=== PATIENT | female | born 1975 | race Two or more races ===

== ENCOUNTER 2018-05-21 22:35 | Emergency (ER) | payer SELFPAY ==
[2018-05-21] MEDS ORDERED: Nitroglycerin 0.4 MG Tab.SL SL ONE (22:40)
[2018-05-21] MEDS ORDERED: Sodium Chloride 0.9% 2.5 ML Syringe FLUSH PRN ×2 (22:40)
[2018-05-21] MEDS ORDERED: Famotidine 20 MG/2 ML SDV IVPUSH ONE (22:40)
[2018-05-21] MEDS ORDERED: Aspirin 81 MG Tab.Chew PO ONE (22:40)
[2018-05-21] MEDS ORDERED: Sodium Chloride 0.9% 1,000 ML IV ONE (22:40)
[2018-05-21] MEDS ORDERED: Sodium Chloride 0.9% 10 ML Syringe FLUSH PRN (22:40)
--- NOTE | 2018-05-21 22:42 | EDM.PDOC ---
ED HPI GENERAL MEDICAL PROBLEM - General Chief Complaint: Chest Pain Stated Complaint: CHEST PAIN, SOB Time Seen by Provider: 05/21/18 22:42 Source of Information: Reports: Patient History Limitations: Reports: No Limitations - History of Present Illness INITIAL COMMENTS - FREE TEXT/NARRATIVE: HISTORY AND PHYSICAL: History of present illness: 43-year-old female presenting in the [facility] department with chief complaint of chest pain 2 hours. Patient states that she was feeling her normal self until approximately 2-3 hours ago when she began to have substernal chest pain. She denies any associated radiation but did have some nausea with one episode of vomiting as well as shortness of breath and diaphoresis. Denies any previous cardiac history. Also complaining of some right-sided head pain that also has started this evening. States that she does get headaches but this is more new to her. Also complaining of some right sided neck pain and swelling. Currently pain is 8 out 10 and substernal. She does have a history of heartburn. She currently denies any palpitations, syncopal episodes, or focal neurologic deficits. There is swelling to the right neck and patient is acutely tender to palpation. No nuchal rigidity. 0.4 Nitro given as well as aspirin with improvement of chest pain to 6/10 Initial EKG rate [address] elevation ant leads. 2249: WBC elevated 15k Blood cultures already ordered, CT head and neck pending. CXR unremarkable 2315: D-dimer mildly elevated at 0.6 Wells Criteria low risk 0004: CMP unremarkable Troponin negative CT findings: Showed soft tissue edema and stranding in the right posterior lateral neck. A 1.3 cm peripherally enhancing low-attenuation structure medial to the superior right sternocleidomastoid consistent with a abscess or necrotic lymph node. Additionally mildly prominent and shoddy subcentimeter right cervical lymph nodes. Retropharyngeal edema/phlegmon. Apparent soft tissue thickening in the posterior aspect of the hypopharynx in addition an enlarged thyroid extending into the upper neck. Talked with Dr. Green, [facility], who agreed that patient should be transferred for additional assessment by him. He also recommended the addition of decadron, IVF bolus, and Clindamycin which was given. Talked with Dr. Echols, [facility], who accepted patient for transfer. I did discuss the initial presentation of chest pain with Dr. Echols as well as other labs. Review of systems: As per history of present illness and below otherwise all systems reviewed and negative. Past medical history: As per history of present illness and as reviewed below otherwise noncontributory. Surgical history: As per history of present illness and as reviewed below otherwise noncontributory. Social history: No reported history of drug or alcohol abuse. Family history: As per history of present illness and as reviewed below otherwise noncontributory. Physical exam: HEENT: Atraumatic, normocephalic, pupils reactive, negative for conjunctival pallor or scleral icterus, mucous membranes moist, throat clear, neck supple, tenderness to palpation right submadibular and ant cervical area, trachea midline. Lungs: Clear to auscultation, breath sounds equal bilaterally, chest nontender. Heart: S1S2, regular, negative for clicks, rubs, or JVD. Abdomen: Soft, nondistended, nontender. Negative for masses or hepatosplenomegaly. Negative for costovertebral tenderness. Pelvis: Stable nontender. Genitourinary: Deferred. Rectal: Deferred. Extremities: Atraumatic, negative for cords or calf pain. Neurovascular unremarkable. Neuro: Awake, alert, oriented. Cranial nerves II through XII unremarkable. Cerebellum unremarkable. Motor and sensory unremarkable throughout. Exam nonfocal. Diagnostics: CBC, CMP, blood culture 2, chest x-ray, CT head and neck soft tissue Therapeutics: 1 L normal saline, nitroglycerin, ASA, 2 g Rocephin IV, Famotidine 20 mg IV Impression: Atypical chest pain Plan: See above H&P Definitive disposition and diagnosis as appropriate pending reevaluation and review of above. Chest Pain Score (Numeric/FACES): 5 - Related Data Allergies Allergy/AdvReac Type Severity Reaction Status Date / Time No Known Allergies Allergy Verified 05/21/18 22:39 Home Meds: Home Meds . [No Known Home Meds] 05/21/18 [History] Past Medical History - Past Health History Medical/Surgical History: Denies Medical/Surgical History Social & Family History - Tobacco Use Smoking Status *Q: Never Smoker ED ROS GENERAL - Review of Systems Review Of Systems: ROS reveals no pertinent complaints other than HPI. ED EXAM, GENERAL - Physical Exam Exam: See Below Course - Vital Signs Last Recorded V/S: Last Vital Signs Temp 98 F 05/21/18 22:42 Pulse 87 05/21/18 23:46 Resp 19 05/21/18 23:46 BP 146/75 H 05/21/18 23:46 Pulse Ox 97 05/21/18 23:46 - Orders/Labs/Meds Orders: Active Orders 24 hr Category Date Time Status Cardiac Monitoring [RC] . DIRECTED Care 05/21/18 22:40 Active EKG Documentation Completion [RC] STAT Care 05/21/18 22:40 Active Oxygen Therapy [RC] ASDIRECTED Care 05/21/18 22:40 Active Pulse Oximetry [RC] ASDIRECTED Care 05/21/18 22:40 Active Chest 1V Frontal [CR] Stat Exams 05/21/18 22:40 Taken Head w wo Cont [CT] Stat Exams 05/21/18 23:19 Taken Soft Tissue Neck w Cont [CT] Stat Exams 05/21/18 23:35 Taken CULTURE BLOOD [BC] Stat Lab 05/21/18 23:52 Received CULTURE BLOOD [BC] Stat Lab 05/21/18 23:57 Received CULTURE STREP A CONFIRMATION [RM] Stat Lab 05/21/18 23:05 Results HCG QUALITATIVE,URINE [URCHEM] Stat Lab 05/21/18 22:41 Ordered STREP SCRN A RAPID W CULT CONF [RM] Stat Lab 05/21/18 23:05 Results UA W/MICROSCOPIC [URIN] Stat Lab 05/21/18 22:41 Ordered Clindamycin Phosphate [Cleocin] 300 mg Med 05/22/18 01:58 Active Sodium Chloride 0.9% [Normal Saline] 50 ml IV ONETIME Clindamycin Phosphate in D5W [Cleocin in D5W] 900 mg Med 05/22/18 02:09 Active Premix Bag 1 bag IV ONETIME Sodium Chloride 0.9% [Saline Flush] Med 05/21/18 22:40 Active 10 ml FLUSH ASDIRECTED PRN Sodium Chloride 0.9% [Saline Flush] Med 05/21/18 22:40 Active 2.5 ml FLUSH ASDIRECTED PRN Sodium Chloride 0.9% [Saline Flush] Med 05/21/18 22:40 Active 2.5 ml FLUSH ASDIRECTED PRN Blood Culture x2 Reflex Set [OM.PC] Stat Oth 05/21/18 23:33 Ordered Saline Lock Insert [OM.PC] Stat Oth 05/21/18 22:40 Ordered Medication Orders Clindamycin Phosphate 300 mg/ (Sodium Chloride) 52 mls @ 100 mls/hr IV ONETIME ONE Stop: 05/22/18 02:29 Clindamycin Phosphate 900 mg/ (Premix) 50 mls @ 100 mls/hr IV ONETIME ONE Stop: 05/22/18 02:38 Sodium Chloride (Saline Flush) 2.5 ml FLUSH ASDIRECTED PRN PRN Reason: Keep Vein Open Sodium Chloride (Saline Flush) 10 ml FLUSH ASDIRECTED PRN PRN Reason: Keep Vein Open Sodium Chloride (Saline Flush) 2.5 ml FLUSH ASDIRECTED PRN PRN Reason: Keep Vein Open Labs: Laboratory Tests 05/21/18 05/21/18 05/21/18 Range/Units 22:49 22:49 22:49 WBC 15.96 H (4.0-11.0) K/uL RBC 5.27 (4.30-5.90) M/uL Hgb 13.1 (12.0-16.0) g/dL Hct 41.0 (36.0-46.0) % MCV 77.8 L (80.0-98.0) fL MCH 24.9 L (27.0-32.0) pg MCHC 32.0 (31.0-37.0) g/dL RDW Std Deviation 43.8 (28.0-62.0) fl RDW Coeff of Alex 16 H (11.0-15.0) % Plt Count 428 H (150-400) K/uL MPV 9.20 (7.40-12.00) fL Neut % (Auto) 63.3 (48.0-80.0) % Lymph % (Auto) 21.9 (16.0-40.0) % Charles % (Auto) 11.8 (0.0-15.0) % Eos % (Auto) 2.6 (0.0-7.0) % Baso % (Auto) 0.4 (0.0-1.5) % Neut # (Auto) 10.1 H (1.4-5.7) K/uL Lymph # (Auto) 3.5 H (0.6-2.4) K/uL Charles # (Auto) 1.9 H (0.0-0.8) K/uL Eos # (Auto) 0.4 (0.0-0.7) K/uL Baso # (Auto) 0.1 (0.0-0.1) K/uL Nucleated RBC % 0.0 /100WBC Nucleated RBCs # 0 K/uL INR 0.93 D-Dimer, Quantitative 0.60 H (0.0-0.52) mg/LFEU Sodium 139 (136-145) mmol/L Potassium 3.6 (3.5-5.1) mmol/L Chloride 102 (98-107) mmol/L Carbon Dioxide 29.6 (21.0-32.0) mmol/L BUN 9 (7.0-18.0) mg/dL Creatinine 0.8 (0.6-1.0) mg/dL Est Cr Clr Drug Dosing 100.07 mL/min Estimated GFR (MDRD) > 60.0 ml/min Glucose 119 H (74-106) mg/dL Calcium 8.9 (8.5-10.1) mg/dL Total Bilirubin 0.3 (0.2-1.0) mg/dL AST 22 (15-37) IU/L ALT 28 (14-63) IU/L Alkaline Phosphatase 57 (46-116) U/L Troponin I < 0.050 (0.000-0.056) ng/mL Total Protein 8.0 (6.4-8.2) g/dL Albumin 3.5 (3.4-5.0) g/dL Globulin 4.5 H (2.0-3.5) g/dL Albumin/Globulin Ratio 0.8 L (1.3-2.8) Lipase 158 (73-393) U/L Meds: Medications Generic Name Dose Route Start Last Admin Trade Name Freq PRN Reason Stop Dose Admin Clindamycin Phosphate 300 mg/ 52 mls @ 100 mls/hr 05/22/18 01:58 Sodium Chloride IV 05/22/18 02:29 ONETIME ONE Clindamycin Phosphate 900 mg/ 50 mls @ 100 mls/hr 05/22/18 02:09 Premix IV 05/22/18 02:38 ONETIME ONE Sodium Chloride 2.5 ml 05/21/18 22:40 Saline Flush FLUSH ASDIRECTED PRN Keep Vein Open Sodium Chloride 10 ml 05/21/18 22:40 Saline Flush FLUSH ASDIRECTED PRN Keep Vein Open Sodium Chloride 2.5 ml 05/21/18 22:40 Saline Flush FLUSH ASDIRECTED PRN Keep Vein Open Discontinued Medications Generic Name Dose Route Start Last Admin Trade Name Freq PRN Reason Stop Dose Admin Aspirin 324 mg 05/21/18 22:40 05/21/18 22:52 Aspirin PO 05/21/18 22:41 324 mg ONETIME ONE Administration Dexamethasone 10 mg 05/22/18 01:57 Dexamethasone IVPUSH 05/22/18 01:58 ONETIME ONE Famotidine 20 mg 05/21/18 22:40 05/21/18 22:56 Pepcid IVPUSH 05/21/18 22:41 20 mg ONETIME ONE Administration Sodium Chloride 1,000 mls @ 999 mls/hr 05/21/18 22:40 05/21/18 22:55 Normal Saline IV 05/21/18 23:40 999 mls/hr .Bolus ONE Administration Ceftriaxone Sodium/Dextrose 2 50 mls @ 100 mls/hr 05/21/18 23:33 05/21/18 23: 44 gm/ Premix IV 05/22/18 00:02 100 mls/hr ONETIME ONE Administration Morphine Sulfate 2 mg 05/22/18 01:36 05/22/18 01:47 Morphine IVPUSH 05/22/18 01:37 2 mg ONETIME ONE Administration Nitroglycerin 0.4 mg 05/21/18 22:40 05/21/18 22:54 Nitrostat SL 05/21/18 22:41 0.4 mg ONETIME ONE Administration Departure - Departure Time of Disposition: 02:12 Disposition: DC/Tfer to Other 70 Condition: Good Clinical Impression: Retropharyngeal abscess, Atypical chest pain - Discharge Information Referrals: PCP,None [Primary Care Provider] - Forms: ED Department Discharge - My Orders Last 24 Hours: My Active Orders 05/21/18 22:40 Cardiac Monitoring [RC] . DIRECTED EKG Documentation Completion [RC] STAT Oxygen Therapy [RC] ASDIRECTED Pulse Oximetry [RC] ASDIRECTED Chest 1V Frontal [CR] Stat Sodium Chloride 0.9% [Saline Flush] 10 ml FLUSH ASDIRECTED PRN Sodium Chloride 0.9% [Saline Flush] 2.5 ml FLUSH ASDIRECTED PRN Sodium Chloride 0.9% [Saline Flush] 2.5 ml FLUSH ASDIRECTED PRN Saline Lock Insert [OM.PC] Stat 05/21/18 22:41 HCG QUALITATIVE,URINE [URCHEM] Stat UA W/MICROSCOPIC [URIN] Stat 05/21/18 23:05 CULTURE STREP A CONFIRMATION [RM] Stat STREP SCRN A RAPID W CULT CONF [RM] Stat 05/21/18 23:19 Head w wo Cont [CT] Stat 05/21/18 23:33 Blood Culture x2 Reflex Set [OM.PC] Stat 05/21/18 23:35 Soft Tissue Neck w Cont [CT] Stat 05/21/18 23:52 CULTURE BLOOD [BC] Stat 05/21/18 23:57 CULTURE BLOOD [BC] Stat 05/22/18 01:58 Clindamycin Phosphate [Cleocin] 300 mg Sodium Chloride 0.9% [Normal Saline] 50 ml IV ONETIME 05/22/18 02:09 Clindamycin Phosphate in D5W [Cleocin in D5W] 900 mg Premix Bag 1 bag IV ONETIME - Assessment/Plan Last 24 Hours: My Active Orders 05/21/18 22:40 Cardiac Monitoring [RC] . DIRECTED EKG Documentation Completion [RC] STAT Oxygen Therapy [RC] ASDIRECTED Pulse Oximetry [RC] ASDIRECTED Chest 1V Frontal [CR] Stat Sodium Chloride 0.9% [Saline Flush] 10 ml FLUSH ASDIRECTED PRN Sodium Chloride 0.9% [Saline Flush] 2.5 ml FLUSH ASDIRECTED PRN Sodium Chloride 0.9% [Saline Flush] 2.5 ml FLUSH ASDIRECTED PRN Saline Lock Insert [OM.PC] Stat 05/21/18 22:41 HCG QUALITATIVE,URINE [URCHEM] Stat UA W/MICROSCOPIC [URIN] Stat 05/21/18 23:05 CULTURE STREP A CONFIRMATION [RM] Stat STREP SCRN A RAPID W CULT CONF [RM] Stat 05/21/18 23:19 Head w wo Cont [CT] Stat 05/21/18 23:33 Blood Culture x2 Reflex Set [OM.PC] Stat 05/21/18 23:35 Soft Tissue Neck w Cont [CT] Stat 05/21/18 23:52 CULTURE BLOOD [BC] Stat 05/21/18 23:57 CULTURE BLOOD [BC] Stat 05/22/18 01:58 Clindamycin Phosphate [Cleocin] 300 mg Sodium Chloride 0.9% [Normal Saline] 50 ml IV ONETIME 05/22/18 02:09 Clindamycin Phosphate in D5W [Cleocin in D5W] 900 mg Premix Bag 1 bag IV ONETIME
[2018-05-21] MEDS ORDERED: cefTRIAXone 2 GM in Premix Bag 1 BAG IV ONE (23:33)
[2018-05-21 23:34] LABS: CHLORIDE,CL 102 mmol/L (98-107); SODIUM,NA 139 mmol/L (136-145)
[2018-05-22] MEDS ORDERED: Morphine 2 MG/ML Syringe IVPUSH ONE (01:36)
[2018-05-22] MEDS ORDERED: Dexamethasone 10 MG/ML SDV IVPUSH ONE (01:57)
[2018-05-22] MEDS ORDERED: Clindamycin Phosphate in D5W 900 MG in Premix Bag 1 BAG IV ONE ×2 (02:09)
[2018-05-22] MEDS ORDERED: diphenhydrAMINE 50 MG/ML SDV IVPUSH ONE (02:20)
[2018-05-22] MEDS ORDERED: Iopamidol 755 MG/ML 500 ML Multipack Bottle IVPUSH STA (04:07)
--- NOTE | 2018-05-22 14:16 | CR ---
EXAM DATE: 05/21/18 PATIENT'S AGE: 43 Patient: RIMMA THOMPSON Facility: [place], [place] Site . Site : 1975 Study: XRay Chest [id number]/12/2018 11:19:24 PM Ordering Physician: Doctor Anderson Final Report: INDICATION: chest pain CHEST, ONE VIEW An AP radiograph of the chest was performed. Comparison: No previous studies are currently available for comparison. The lungs appear clear and no pleural effusions are identified. The cardiomediastinal silhouette and pulmonary vasculature appear normal, as do the visualized bones. IMPRESSION: No acute intrathoracic abnormality identified. UMESH MCKINLEY MD [employer] Dictated by: Rupesh Mckinley MD @ 05/22/2018 00:07:36 (Electronic Signature) Report Signed by Proxy. [facility]
--- NOTE | 2018-05-22 14:17 | CT ---
EXAM DATE: 05/21/18 PATIENT'S AGE: 43 Patient: RIMMA THOMPSON Facility: [place], [place] Site . Site : 1975 Study: CT Head [id number]/13/2018 12:39:48 AM Ordering Physician: Angus Peerira Final Report: INDICATION: Right-sided headache TECHNIQUE: CT head without and with contrast. COMPARISON: None available FINDINGS: There is artifact near the skullbase. There is slight superior frontal cortical volume loss. The ventricles are within normal limits. There is no mass effect or midline shift. There is no loss of mendieta-white differentiation. There is no evidence of a gross acute intracranial hemorrhage. No abnormal parenchymal enhancement is seen. No acute calvarial fracture is seen. There is mild maxillary sinus mucosal thickening. There is opacification of some right mastoid air cells. The visualized orbits are within normal limits. There is soft tissue edema and stranding in the right posterior upper cervical and retroauricular region with a 1.4 x 1.0 centimeter peripherally enhancing ovoid low-density structure in the deep soft tissues with adjacent stranding, compatible with an abscess or a necrotic lymph node. The adenoids are enlarged. IMPRESSION: No evidence of a gross acute intracranial hemorrhage, mass effect or loss of mendieta-white differentiation. No abnormal parenchymal enhancement seen. Edema and stranding in the posterior right upper cervical soft tissues with a 1.4 cm abscess or necrotic lymph node. Right mastoid disease. Dictated by Todd Walters MD @ 05/22/2018 1:24:17 AM Please note that all CT scans at this facility use dose modulation, iterative reconstruction, and/or weight-based dosing when appropriate to reduce radiation dose to as low as reasonably achievable. Dictated by: Todd Walters MD @ 05/22/2018 01:24:20 (Electronic Signature) Report Signed by Proxy. [facility]
--- NOTE | 2018-05-22 14:18 | CT ---
EXAM DATE: 05/21/18 PATIENT'S AGE: 43 Patient: RIMMA THOMPSON Facility: [place], [place] Site . Site : 1975 Study: CT ST Neck [id number]/13/2018 12:44:08 AM Ordering Physician: Angus Pereira Final Report: INDICATION: Right neck pain and swelling TECHNIQUE: CT soft tissue of the neck was acquired with IV contrast. COMPARISON: None available FINDINGS: There is soft tissue edema and stranding in the posterolateral right cervical soft tissues. There is a 1.3 x 1.1 cm in peripherally enhancing ovoid low- attenuation structure medial to the right sternocleidomastoid on image 26, with adjacent stranding, consistent with an abscess versus a necrotic lymph node. There are mildly prominent and multiple subcentimeter right cervical lymph nodes , measuring up to 1.2 centimeters in short axis. There is edema/phlegmon in the retropharyngeal soft tissues at the C1-C4 levels , without significant peripheral enhancement. The adenoids are enlarged. There is apparent soft tissue thickening in the posterior aspect of the inferior hypopharynx. The thyroid is enlarged, extending superiorly to the C3 level. There is a small dense focus in the inferior aspect of the left thyroid lobe. The parotid, submandibular and sublingual glands are within normal limits. There is mild maxillary sinus mucosal thickening. There is opacification of some right mastoid air cells. There is mild reversal of the cervical lordosis. No suspicious or acute osseous abnormalities are seen. IMPRESSION: Soft tissue edema and stranding in the right posterolateral neck. A 1.3 cm peripherally enhancing low attenuation structure medial to the superior right sternocleidomastoid consistent with an abscess or necrotic lymph node. Additional mildly prominent and shotty subcentimeter right cervical lymph nodes. Retropharyngeal edema/ phlegmon. Apparent soft tissue thickening in the posterior aspect of the hypopharynx. Recommend further ENT evaluation. An enlarged thyroid extending into the upper neck. A small left thyroid dense focus, nonspecific. Followup with sonographic evaluation. Dictated by Todd Walters MD @ 05/22/2018 1:33:18 AM Please note that all CT scans at this facility use dose modulation, iterative reconstruction, and/or weight-based dosing when appropriate to reduce radiation dose to as low as reasonably achievable. Dictated by: Todd Walters MD @ 05/22/2018 01:33:23 (Electronic Signature) Report Signed by Proxy. [facility]
== END 2018-05-22 03:14 | disposition other institution (70) ==
LOC: EDBD 22:35 → MW.ED 22:35
DX: J39.0 Retropharyngeal and parapharyngeal abscess (principal); R07.89 Other chest pain
CPT/HCPCS: 36415; 70470; 70491; 71045; 80053; 83690; 84484; 85025; 85379; 85610; 87040; 87081; 87880; 93005; 96361; 96365; 96375; 99285; A9270; J0696; J1100; J1200; J2270; J3490; J7040; Q9967; 99284

== ENCOUNTER 2021-01-07 22:03 | Observation (INO) | payer MEDICAID, OTHER ==
[2021-01-07] MEDS ORDERED: Sodium Chloride 0.9% 1,000 ML IV STA (22:04)
[2021-01-07] MEDS ORDERED: Sodium Chloride 0.9% 2.5 ML Syringe FLUSH PRN (22:04)
[2021-01-07] MEDS ORDERED: Sodium Chloride 0.9% 10 ML SDV IV PRN (22:04)
[2021-01-07] MEDS ORDERED: Ondansetron 4 MG/2 ML SDV IVPUSH ONE (22:04)
[2021-01-07] MEDS ORDERED: Sodium Chloride 0.9% 10 ML Syringe FLUSH PRN (22:04)
[2021-01-07] MEDS ORDERED: niCARdipine/Normal Saline 40 MG/200 ML BAG IV SCH ×2 (22:15→22:45)
[2021-01-07] MEDS ORDERED: niCARdipine/Normal Saline 20 MG/200 ML BAG ONE (22:39)
--- NOTE | 2021-01-07 22:40 | CT ---
CT HEAD DATE: 01/07/2021 CLINICAL HISTORY: Patient with focal neurological deficits. TECHNIQUE: Standard CT scanning of the head was performed. COMPARISON: CT 05/22/2018. FINDINGS: There is no intracranial hemorrhage. There is no territorial infarction. There are mild microangiopathic changes. There is diffuse parenchymal volume loss. There is no mass effect or midline shift. The calvarium is unremarkable. The orbits are unremarkable. The paranasal sinuses are unremarkable. The mastoid air cells are unremarkable. The soft tissues are unremarkable. IMPRESSION: 1. No intracranial hemorrhage or territorial infarction. 2. Mild microangiopathic changes and diffuse parenchymal volume loss. Please note that all CT scans at this facility use dose modulation, iterative reconstruction, and/or weight-based dosing when appropriate to reduce radiation dose to as low as reasonably achievable. Dictated by: Lucho Perkins MD @ 01/07/2021 22:39:34 (Electronically Signed)
[2021-01-07] MEDS ORDERED: Iopamidol 755 MG/ML 500 ML Multipack Bottle IVPUSH STA (22:41)
--- NOTE | 2021-01-07 22:44 | CT ---
CT ANGIOGRAM HEAD AND NECK DATE: 01/07/2021 CLINICAL HISTORY: Patient with focal neurological deficits. TECHNIQUE: Standard helical CT image acquisition through the head and neck was performed after intravenous contrast bolus enhancement. Multiplanar reconstructed images were performed and interpreted. COMPARISON: CT same day. FINDINGS: There is no proximal intracranial large vessel occlusion. The origins of the great vessels from the aortic arch are patent. The origin of the right vertebral artery is patent. The origin of the left vertebral artery is patent. The common carotid arteries are patent There is no stenosis at the origin of the right internal carotid artery. There is no stenosis at the origin of the left internal carotid artery. The rest of the cervical segments of the internal carotid arteries are patent up to their intracranial segments. The intracranial segments of the internal carotid arteries are patent. The vertebral arteries are codominant. The cervical segments of the vertebral arteries are patent. The intracranial segments of the vertebral arteries are patent. The middle cerebral arteries are normal without aneurysm or proximal occlusion identified. The anterior cerebral arteries are normal without aneurysm or proximal occlusion identified. The anterior communicating artery is well visualized and appears normal. The basilar artery is normal without aneurysm or occlusion. The posterior cerebral arteries are normal without aneurysm or proximal occlusion. There is normal opacification of major intracranial venous structures. The visualized lung apices are unremarkable The thyroid gland is unremarkable. The soft tissues of the neck are unremarkable. There are degenerative changes in the cervical spine. IMPRESSION: Normal CT angiogram of the head and neck. Please note that all CT scans at this facility use dose modulation, iterative reconstruction, and/or weight-based dosing when appropriate to reduce radiation dose to as low as reasonably achievable. Dictated by Lucho Perkins MD @ Jan 07 2021 10:43PM Signed by Dr. Lucho Perkins @ Jan 07 2021 10:43PM
[2021-01-07] MEDS ORDERED: niCARdipine/Normal Saline 20 MG/200 ML BAG IV SCH (23:00)
--- NOTE | 2021-01-07 23:08 | CR ---
HISTORY: Code stroke. COMPARISON: Report of the previous chest radiograph from 05/21/2018. FINDINGS: A portable erect AP view of the chest was obtained at 22 32 hours. The lungs remain clear. No focal or diffuse infiltrates are present. The heart remains normal in size. The mediastinum is normal in appearance. The osseous structures are normal in appearance for the patient`s age. IMPRESSION: Normal portable chest single view. Dictated by Benigno Ruff MD @ Jan 07 2021 11:05PM Signed by Dr. Benigno Ruff @ Jan 07 2021 11:07PM
[2021-01-07] MEDS ORDERED: Nitroglycerin 2% Oint 1 GM UD Packet TOP ONE ×2 (23:12→23:42)
--- NOTE | 2021-01-07 23:15 | EDM.PDOC ---
ED HPI GENERAL MEDICAL PROBLEM - General Chief Complaint: Neuro Symptoms/Deficits Stated Complaint: EMT Time Seen by Provider: 01/07/21 22:08 - History of Present Illness INITIAL COMMENTS - FREE TEXT/NARRATIVE: HISTORY AND PHYSICAL: History of present illness: This is a 45-year-old female who was brought in to the ER by EMS as a stroke code secondary to paresthesias upper extremities bilaterally with a left facial droop and markedly elevated blood pressure. Upon arrival by EMS, they report that her blood pressure was 210/125 prior to arrival to the ED. Patient reports that approximately 30 minutes prior to arrival she started experiencing paresthesias in her upper extremities. Patient denies any weakness. Patient denies any slurring of her speech. Patient denies any weakness to her lower extremities. Patient denies any double vision or blurred vision. Patient has any chest pain or shortness of breath. Patient has abdominal discomfort. Patient reports that she has no history of hypertension but is extremely noncompliant with medical care and has not seen a physician in quite some time. Patient denies any tobacco, alcohol, drugs. Patient denies any headache or sensation of confusion. Patient reports that her left and right hand felt extremely numb upon arrival to the ED. Review of systems: As per history of present illness and below otherwise all systems reviewed and negative. Past medical history: As per history of present illness and as reviewed below otherwise noncontributory. Surgical history: As per history of present illness and as reviewed below otherwise noncontributory. Social history: No reported history of drug or alcohol abuse. Family history: As per history of present illness and as reviewed below otherwise noncontributory. Physical exam: HEENT: Atraumatic, normocephalic, pupils reactive, negative for conjunctival pallor or scleral icterus, mucous membranes moist, throat clear, neck supple, nontender, trachea midline. Lungs: Clear to auscultation, breath sounds equal bilaterally, chest nontender. Heart: S1S2, regular, negative for clicks, rubs, or JVD. Abdomen: Soft, nondistended, nontender. Negative for masses or hepatosplenomegaly. Negative for costovertebral tenderness. Pelvis: Stable nontender. Genitourinary: Deferred. Rectal: Deferred. Extremities: Atraumatic, negative for cords or calf pain. Neurovascular unremarkable. Neuro: Awake, alert, oriented. Cranial nerves II through XII unremarkable. Cerebellum unremarkable. Motor and sensory unremarkable throughout. Exam nonfocal. Diagnostics: EKG: As interpreted by ER physician: Jayson: Nonspecific ST-T wave abnormalities Normal axis No evidence of ST elevation [place] Normal sinus rhythm heart rate of 76 Chest Xray: Normal cardiac silhouette No infiltrates or effusions identified. No PTX No evidence of acute bony fracture. As interpreted by ER MD: Jayson CT head, CTA head, CTA neck reveals no acute pathology. Assessment and plan: 45-year-old female who presents to the ER today secondary to paresthesias and a markedly elevated blood pressure. Patient was one of the stroke code secondary to her symptoms. Patient's NIH score was initially given as a 1 secondary to her left facial droop however after discussion with the patient reports that her left facial droop is a normal for her and that she always has a left droop of her lips for most of her life. She reports that that is her baseline. Patient's blood pressure currently is 195/95 without any medical intervention. Nicardipine was initially ordered however by the time the medication was prepared her blood pressure had significantly improved. Patient symptoms with her improved blood pressure have completely resolved. Patient reports just slight tingling in both hands. Patient symptoms are most likely secondary to effects of hypertensive crisis. Patient's blood pressure has spontaneously improved while here so we will hold off giving her the nicardipine. Patient will be given aspirin and Nitropaste. Critical Care: The high probability of sudden, clinically significant deterioration in the patient's condition required the highest level of my preparedness to intervene urgently. The services I provided to this patient were to treat and/or prevent clinically significant deterioration. Services included the following: chart data review, reviewing nursing notes and/or old charts, documentation time, revenue cycle consultant collaboration regarding findings and treatment options, medication orders and management, direct patient care, vital sign assessments and ordering, interpreting and reviewing diagnostic studies/lab t ests. Aggregate critical care time includes only time during which I was engaged inwork directly related to the patient's care, as described above, whether at the bedside or elsewhere in the Emergency Department. It did not include time spent performing other reported procedures or the services of residents, students, nurses or physician assistants. Critical Care Time: 35 minutes Definitive disposition and diagnosis as appropriate pending reevaluation and review of above. - Related Data Allergies Allergy/AdvReac Type Severity Reaction Status Date / Time No Known Allergies Allergy Verified 01/07/21 22:23 Home Meds: Home Meds . [No Known Home Meds] 05/21/18 [History] Past Medical History - Past Health History Medical/Surgical History: Denies Medical/Surgical History ED ROS GENERAL - Review of Systems Review Of Systems: See Below ED EXAM, GENERAL - Physical Exam Exam: See Below Course - Vital Signs Last Recorded V/S: Last Vital Signs Temp 97.5 F 01/07/21 22:05 Pulse 102 H 01/08/21 00:00 Resp 18 01/07/21 22:05 BP 143/90 H 01/08/21 00:00 Pulse Ox 96 01/08/21 00:00 - Orders/Labs/Meds Orders: Active Orders 24 hr Category Date Time Status Assess Neurological Status [RC] ASDIRECTED Care 01/07/21 22:05 Active Bedrest [RC] ASDIRECTED Care 01/07/21 22:05 Active Blood Glucose Check, Bedside [RC] STAT Care 01/07/21 22:05 Active Cardiac Monitoring [RC] . DIRECTED Care 01/07/21 22:05 Active EKG Documentation Completion [RC] STAT Care 01/07/21 22:05 Active Height and Weight [RC] UPON Care 01/07/21 22:05 Active Initiate Acute Stroke Protocol [RC] STAT Care 01/07/21 22:05 Active NIH Stroke Scale [RC] ASDIRECTED Care 01/07/21 22:05 Active Nursing Bedside Swallow Screen [RC] ASDIRECTED Care 01/07/21 22:05 Active Oxygen Therapy [RC] ASDIRECTED Care 01/07/21 22:05 Active Stroke Education, General [RC] Click to Edit Care 01/07/21 22:05 Active Vital Signs [RC] Q15M Care 01/07/21 22:05 Active Sodium Chloride 0.9% [Normal Saline] Med 01/07/21 22:04 Active 10 ml IV ASDIRECTED PRN Sodium Chloride 0.9% [Normal Saline] 1,000 ml Med 01/07/21 22:04 Active IV NOW Sodium Chloride 0.9% [Saline Flush] Med 01/07/21 22:04 Active 10 ml FLUSH ASDIRECTED PRN Sodium Chloride 0.9% [Saline Flush] Med 01/07/21 22:04 Active 2.5 ml FLUSH ASDIRECTED PRN niCARdipine/Normal Saline [Cardene in NS 20 MG/200 ML] Med 01/07/21 23:00 Active 20 mg in 200 ml IV ASDIRECTED Peripheral IV Insertion Adult [OM.PC] Stat Oth 01/07/21 22:05 Ordered Peripheral IV Insertion Adult [OM.PC] Stat Oth 01/07/21 22:05 Ordered Resuscitation Status Stat Resus Stat 01/07/21 22:04 Ordered Medication Orders Sodium Chloride (Normal Saline) 1,000 mls @ 125 mls/hr IV NOW STA Stop: 01/08/21 06:03 Last Admin: 01/07/21 22:56 Dose: 125 mls/hr Documented by: VIOLETA Nicardipine HCl (Cardene In Ns 20 Mg/200 Ml) 20 mg in 200 mls @ 5 mls/hr IV ASDIRECTED VICK; Protocol Last Titration: 01/07/21 23:01 Dose: 0 mls/hr Documented by: Admin: 01/07/21 23:00 Dose: 5 mls/hr Documented by: VIOLETA Sodium Chloride (Sodium Chloride 0.9% 10 Ml Syringe) 10 ml FLUSH ASDIRECTED PRN PRN Reason: Keep Vein Open Last Admin: 01/07/21 23:02 Dose: 10 ml Documented by: VIOLETA Sodium Chloride (Sodium Chloride 0.9% 2.5 Ml Syringe) 2.5 ml FLUSH ASDIRECTED PRN PRN Reason: Keep Vein Open Last Admin: 01/07/21 23:02 Dose: 2.5 ml Documented by: VIOLETA Sodium Chloride (Sodium Chloride 0.9% 10 Ml Sdv) 10 ml IV ASDIRECTED PRN PRN Reason: IV Use Labs: Laboratory Tests 01/07/21 01/07/21 01/07/21 Range/Units 22:50 22:50 22:50 WBC 10.54 (4.0-11.0) K/uL RBC 5.26 (4.30-5.90) M/uL Hgb 14.1 (12.0-16.0) g/dL Hct 42.9 (36.0-46.0) % MCV 81.6 (80.0-98.0) fL MCH 26.8 L (27.0-32.0) pg MCHC 32.9 (31.0-37.0) g/dL RDW Std Deviation 43.4 (28.0-62.0) fl RDW Coeff of Alex 15 (11.0-15.0) % Plt Count 389 (150-400) K/uL MPV 9.80 (7.40-12.00) fL Neut % (Auto) 55.1 (48.0-80.0) % Lymph % (Auto) 27.7 (16.0-40.0) % [place] % (Auto) 10.9 (0.0-15.0) % Eos % (Auto) 6.0 (0.0-7.0) % Baso % (Auto) 0.3 (0.0-1.5) % Neut # (Auto) 5.8 H (1.4-5.7) K/uL Lymph # (Auto) 2.9 H (0.6-2.4) K/uL [place] # (Auto) 1.2 H (0.0-0.8) K/uL Eos # (Auto) 0.6 (0.0-0.7) K/uL Baso # (Auto) 0.0 (0.0-0.1) K/uL Nucleated RBC % 0.0 /100WBC Nucleated RBCs # 0 K/uL INR 0.99 APTT 26.1 (18.6-31.3) SEC Sodium 137 (136-145) mmol/L Potassium 3.7 (3.5-5.1) mmol/L Chloride 102 (98-107) mmol/L Carbon Dioxide 26.8 (21.0-32.0) mmol/L BUN 13 (7.0-18.0) mg/dL Creatinine 0.8 (0.6-1.0) mg/dL Est Cr Clr Drug Dosing 84.88 mL/min Estimated GFR (MDRD) > 60.0 ml/min Glucose 146 H (74-106) mg/dL Calcium 9.2 (8.5-10.1) mg/dL Total Bilirubin 0.3 (0.2-1.0) mg/dL AST 18 (15-37) IU/L ALT 31 (14-63) IU/L Alkaline Phosphatase 56 (46-116) U/L Troponin I < 0.050 (0.000-0.056) ng/mL Total Protein 7.8 (6.4-8.2) g/dL Albumin 3.7 (3.4-5.0) g/dL Globulin 4.1 H (2.6-4.0) g/dL Albumin/Globulin Ratio 0.9 (0.9-1.6) TSH 3rd Generation 2.38 (0.36-3.74) uIU/mL HCG, Qual (NEG) Urine Color Urine Appearance Urine pH (5.0-8.0) Ur Specific [place] (1.001-1.035) Urine Protein (NEGATIVE) mg/dL Urine Glucose (UA) (NEGATIVE) mg/dL Urine Ketones (NEGATIVE) mg/dL Urine Occult Blood (NEGATIVE) Urine Nitrite (NEGATIVE) Urine Bilirubin (NEGATIVE) Urine Urobilinogen (<2.0) EU/dL Ur Leukocyte Esterase (NEGATIVE) Urine RBC (0-2/HPF) Urine WBC (0-5/HPF) Ur Epithelial Cells (NONE-FEW) Urine Bacteria (NEGATIVE) Urine Mucus (NONE-MOD) Urine Opiates Screen (NEGATIVE) Ur Oxycodone Screen (NEGATIVE) Urine Methadone Screen (NEGATIVE) Ur Barbiturates Screen (NEGATIVE) Ur Phencyclidine Scrn (NEGATIVE) Ur Amphetamine Screen (NEGATIVE) U Methamphetamines Scrn (NEGATIVE) U Benzodiazepines Scrn (NEGATIVE) U Cocaine Metab Screen (NEGATIVE) U Marijuana (THC) Screen (NEGATIVE) Ethyl Alcohol < 3.0 mg/dL SARS-CoV-2 RNA (MARCELLUS) (NEGATIVE) 01/07/21 01/07/21 01/07/21 Range/Units 22:50 23:20 23:20 WBC (4.0-11.0) K/uL RBC (4.30-5.90) M/uL Hgb (12.0-16.0) g/dL Hct (36.0-46.0) % MCV (80.0-98.0) fL MCH (27.0-32.0) pg MCHC (31.0-37.0) g/dL RDW Std Deviation (28.0-62.0) fl RDW Coeff of Alex (11.0-15.0) % Plt Count (150-400) K/uL MPV (7.40-12.00) fL Neut % (Auto) (48.0-80.0) % Lymph % (Auto) (16.0-40.0) % [place] % (Auto) (0.0-15.0) % Eos % (Auto) (0.0-7.0) % Baso % (Auto) (0.0-1.5) % Neut # (Auto) (1.4-5.7) K/uL Lymph # (Auto) (0.6-2.4) K/uL [place] # (Auto) (0.0-0.8) K/uL Eos # (Auto) (0.0-0.7) K/uL Baso # (Auto) (0.0-0.1) K/uL Nucleated RBC % /100WBC Nucleated RBCs # K/uL INR APTT (18.6-31.3) SEC Sodium (136-145) mmol/L Potassium (3.5-5.1) mmol/L Chloride (98-107) mmol/L Carbon Dioxide (21.0-32.0) mmol/L BUN (7.0-18.0) mg/dL Creatinine (0.6-1.0) mg/dL Est Cr Clr Drug Dosing mL/min Estimated GFR (MDRD) ml/min Glucose (74-106) mg/dL Calcium (8.5-10.1) mg/dL Total Bilirubin (0.2-1.0) mg/dL AST (15-37) IU/L ALT (14-63) IU/L Alkaline Phosphatase (46-116) U/L Troponin I (0.000-0.056) ng/mL Total Protein (6.4-8.2) g/dL Albumin (3.4-5.0) g/dL Globulin (2.6-4.0) g/dL Albumin/Globulin Ratio (0.9-1.6) TSH 3rd Generation (0.36-3.74) uIU/mL HCG, Qual NEGATIVE (NEG) Urine Color YELLOW Urine Appearance SLT CLOUDY Urine pH 6.5 (5.0-8.0) Ur Specific [place] 1.020 (1.001-1.035) Urine Protein 100 H (NEGATIVE) mg/dL Urine Glucose (UA) NEGATIVE (NEGATIVE) mg/dL Urine Ketones NEGATIVE (NEGATIVE) mg/dL Urine Occult Blood TRACE-LYSED H (NEGATIVE) Urine Nitrite POSITIVE H (NEGATIVE) Urine Bilirubin NEGATIVE (NEGATIVE) Urine Urobilinogen 0.2 (<2.0) EU/dL Ur Leukocyte Esterase NEGATIVE (NEGATIVE) Urine RBC NONE SEEN (0-2/HPF) Urine WBC 0-3 (0-5/HPF) Ur Epithelial Cells RARE (NONE-FEW) Urine Bacteria 3+ H (NEGATIVE) Urine Mucus LIGHT (NONE-MOD) Urine Opiates Screen NEGATIVE (NEGATIVE) Ur Oxycodone Screen NEGATIVE (NEGATIVE) Urine Methadone Screen NEGATIVE (NEGATIVE) Ur Barbiturates Screen NEGATIVE (NEGATIVE) Ur Phencyclidine Scrn NEGATIVE (NEGATIVE) Ur Amphetamine Screen NEGATIVE (NEGATIVE) U Methamphetamines Scrn NEGATIVE (NEGATIVE) U Benzodiazepines Scrn NEGATIVE (NEGATIVE) U Cocaine Metab Screen NEGATIVE (NEGATIVE) U Marijuana (THC) Screen NEGATIVE (NEGATIVE) Ethyl Alcohol mg/dL SARS-CoV-2 RNA (MARCELLUS) (NEGATIVE) 01/07/21 Range/Units 23:25 WBC (4.0-11.0) K/uL RBC (4.30-5.90) M/uL Hgb (12.0-16.0) g/dL Hct (36.0-46.0) % MCV (80.0-98.0) fL MCH (27.0-32.0) pg MCHC (31.0-37.0) g/dL RDW Std Deviation (28.0-62.0) fl RDW Coeff of [place] (11.0-15.0) % Plt Count (150-400) K/uL MPV (7.40-12.00) fL Neut % (Auto) (48.0-80.0) % Lymph % (Auto) (16.0-40.0) % [place] % (Auto) (0.0-15.0) % Eos % (Auto) (0.0-7.0) % Baso % (Auto) (0.0-1.5) % Neut # (Auto) (1.4-5.7) K/uL Lymph # (Auto) (0.6-2.4) K/uL [place] # (Auto) (0.0-0.8) K/uL Eos # (Auto) (0.0-0.7) K/uL Baso # (Auto) (0.0-0.1) K/uL Nucleated RBC % /100WBC Nucleated RBCs # K/uL INR APTT (18.6-31.3) SEC Sodium (136-145) mmol/L Potassium (3.5-5.1) mmol/L Chloride (98-107) mmol/L Carbon Dioxide (21.0-32.0) mmol/L BUN (7.0-18.0) mg/dL Creatinine (0.6-1.0) mg/dL Est Cr Clr Drug Dosing mL/min Estimated GFR (MDRD) ml/min Glucose (74-106) mg/dL Calcium (8.5-10.1) mg/dL Total Bilirubin (0.2-1.0) mg/dL AST (15-37) IU/L ALT (14-63) IU/L Alkaline Phosphatase (46-116) U/L Troponin I (0.000-0.056) ng/mL Total Protein (6.4-8.2) g/dL Albumin (3.4-5.0) g/dL Globulin (2.6-4.0) g/dL Albumin/Globulin Ratio (0.9-1.6) TSH 3rd Generation (0.36-3.74) uIU/mL HCG, Qual (NEG) Urine Color Urine Appearance Urine pH (5.0-8.0) Ur Specific [place] (1.001-1.035) Urine Protein (NEGATIVE) mg/dL Urine Glucose (UA) (NEGATIVE) mg/dL Urine Ketones (NEGATIVE) mg/dL Urine Occult Blood (NEGATIVE) Urine Nitrite (NEGATIVE) Urine Bilirubin (NEGATIVE) Urine Urobilinogen (<2.0) EU/dL Ur Leukocyte Esterase (NEGATIVE) Urine RBC (0-2/HPF) Urine WBC (0-5/HPF) Ur Epithelial Cells (NONE-FEW) Urine Bacteria (NEGATIVE) Urine Mucus (NONE-MOD) Urine Opiates Screen (NEGATIVE) Ur Oxycodone Screen (NEGATIVE) Urine Methadone Screen (NEGATIVE) Ur Barbiturates Screen (NEGATIVE) Ur Phencyclidine Scrn (NEGATIVE) Ur Amphetamine Screen (NEGATIVE) U Methamphetamines Scrn (NEGATIVE) U Benzodiazepines Scrn (NEGATIVE) U Cocaine Metab Screen (NEGATIVE) U Marijuana (THC) Screen (NEGATIVE) Ethyl Alcohol mg/dL SARS-CoV-2 RNA (MARCELLUS) NEGATIVE (NEGATIVE) Meds: Medications Generic Name Dose Route Start Last Admin Trade Name Freq PRN Reason Stop Dose Admin Sodium Chloride 1,000 mls @ 125 mls/hr 01/07/21 22:04 01/07/21 22:56 Normal Saline IV 01/08/21 06:03 125 mls/hr NOW STA Administration Nicardipine HCl 20 mg in 200 mls @ 5 mls/hr 01/07/21 23:00 01/07/21 23:01 Cardene In Ns 20 Mg/200 Ml IV 0 mls/hr ASDIRECTED VICK Titration Protocol Sodium Chloride 10 ml 01/07/21 22:04 01/07/21 23:02 Sodium Chloride 0.9% 10 Ml Syringe FLUSH 10 ml ASDIRECTED PRN Administration Keep Vein Open Sodium Chloride 2.5 ml 01/07/21 22:04 01/07/21 23:02 Sodium Chloride 0.9% 2.5 Ml Syringe FLUSH 2.5 ml ASDIRECTED PRN Administration Keep Vein Open Sodium Chloride 10 ml 01/07/21 22:04 Sodium Chloride 0.9% 10 Ml Sdv IV ASDIRECTED PRN IV Use Discontinued Medications Generic Name Dose Route Start Last Admin Trade Name Dustyq PRN Reason Stop Dose Admin Nicardipine HCl 40 mg in 200 mls @ 25 mls/hr 01/07/21 22:15 Cardenein Ns 40 Mg/200 Ml IV TITRATE VICK Protocol 5 MG/HR Nicardipine HCl 40 mg in 200 mls @ 25 mls/hr 01/07/21 22:45 Cardenein Ns 40 Mg/200 Ml IV TITRATE VICK Protocol 5 MG/HR Nicardipine HCl Confirm 01/07/21 22:39 01/07/21 22:51 Cardene In Ns 20 Mg/200 Ml Administered 01/07/21 22:40 Not Given Dose 20 mg in 200 mls @ as directed .ROUTE .STK-MED ONE Iopamidol 100 ml 01/07/21 22:41 01/07/21 22:41 Iopamidol 755 Mg/Ml 500 Ml Multipack Bottle IVPUSH 01/07/21 22:42 100 ml ONETIME STA Administration Labetalol HCl 20 mg 01/07/21 23:41 01/08/21 00:35 Labetalol 100 Mg/20 Ml Mdv IVPUSH 01/07/21 23:42 Not Given ONETIME ONE Protocol Nitroglycerin 1 gm 01/07/21 23:12 01/07/21 23:14 Nitroglycerin 2% Oint 1 Gm Ud Packet TOP 01/07/21 23:13 1 gm ONETIME ONE Administration Nitroglycerin 1 gm 01/07/21 23:42 01/07/21 23:59 Nitroglycerin 2% Oint 1 Gm Ud Packet TOP 01/07/21 23:43 Not Given ONETIME ONE Ondansetron HCl 4 mg 01/07/21 22:04 01/07/21 23:02 Ondansetron 4 Mg/2 Ml Sdv IVPUSH 01/07/21 22:05 4 mg ONETIME ONE Administration Departure - Departure Time of Disposition: 23:44 Disposition: Refer to Observation Condition: Good Clinical Impression: Hypertensive crisis, TIA (transient ischemic attack) - Discharge Information Sepsis Event Note (ED) - Evaluation Sepsis Screening Result: No Definite Risk - Focused Exam Vital Signs: Vital Signs Temp Pulse Resp BP BP Pulse Ox 01/07/21 23:30 100 195/105 H 95 01/07/21 23:12 87 189/94 H 97 01/07/21 22:56 195/99 H 01/07/21 22:33 169/81 H 01/07/21 22:05 97.5 F 100 18 175/129 H 97 - My Orders Last 24 Hours: My Active Orders 01/07/21 22:04 Sodium Chloride 0.9% [Normal Saline] 10 ml IV ASDIRECTED PRN Sodium Chloride 0.9% [Normal Saline] 1,000 ml IV NOW Sodium Chloride 0.9% [Saline Flush] 10 ml FLUSH ASDIRECTED PRN Sodium Chloride 0.9% [Saline Flush] 2.5 ml FLUSH ASDIRECTED PRN Resuscitation Status Stat 01/07/21 22:05 Assess Neurological Status [RC] ASDIRECTED Bedrest [RC] ASDIRECTED Blood Glucose Check, Bedside [RC] STAT Cardiac Monitoring [RC] . DIRECTED EKG Documentation Completion [RC] STAT Height and Weight [RC] UPON Initiate Acute Stroke Protocol [RC] STAT NIH Stroke Scale [RC] ASDIRECTED Nursing Bedside Swallow Screen [RC] ASDIRECTED Oxygen Therapy [RC] ASDIRECTED Stroke Education, General [RC] Click to Edit Vital Signs [RC] Q15M Peripheral IV Insertion Adult [OM.PC] Stat Peripheral IV Insertion Adult [OM.PC] Stat 01/07/21 23:00 niCARdipine/Normal Saline [Cardene in NS 20 MG/200 ML] 20 mg in 200 ml IV ASDIRECTED - Assessment/Plan Last 24 Hours: My Active Orders 01/07/21 22:04 Sodium Chloride 0.9% [Normal Saline] 10 ml IV ASDIRECTED PRN Sodium Chloride 0.9% [Normal Saline] 1,000 ml IV NOW Sodium Chloride 0.9% [Saline Flush] 10 ml FLUSH ASDIRECTED PRN Sodium Chloride 0.9% [Saline Flush] 2.5 ml FLUSH ASDIRECTED PRN Resuscitation Status Stat 01/07/21 22:05 Assess Neurological Status [RC] ASDIRECTED Bedrest [RC] ASDIRECTED Blood Glucose Check, Bedside [RC] STAT Cardiac Monitoring [RC] . DIRECTED EKG Documentation Completion [RC] STAT Height and Weight [RC] UPON Initiate Acute Stroke Protocol [RC] STAT NIH Stroke Scale [RC] ASDIRECTED Nursing Bedside Swallow Screen [RC] ASDIRECTED Oxygen Therapy [RC] ASDIRECTED Stroke Education, General [RC] Click to Edit Vital Signs [RC] Q15M Peripheral IV Insertion Adult [OM.PC] Stat Peripheral IV Insertion Adult [OM.PC] Stat 01/07/21 23:00 niCARdipine/Normal Saline [Cardene in NS 20 MG/200 ML] 20 mg in 200 ml IV ASDIRECTED
[2021-01-07 23:33] LABS: BLOOD UREA NITROGEN,BUN 13 mg/dL (7.0-18.0); CARBON DIOXIDE,CO2 26.8 mmol/L (21.0-32.0); CHLORIDE,CL 102 mmol/L (98-107); GLUCOSE RANDOM 146 mg/dL (74-106); POTASSIUM,K 3.7 mmol/L (3.5-5.1); SODIUM,NA 137 mmol/L (136-145)
[2021-01-07] MEDS ORDERED: Labetalol 100 MG/20 ML MDV IVPUSH ONE (23:41)
[2021-01-08] MEDS ORDERED: Labetalol 100 MG/20 ML MDV IVPUSH PRN (01:23)
[2021-01-08] MEDS ORDERED: Ondansetron 4 MG/2 ML SDV IVPUSH PRN (01:25)
[2021-01-08] MEDS ORDERED: Albuterol/Ipratropium 3.0-0.5 MG/3 ML Neb Soln NEB PRN (01:25)
[2021-01-08] MEDS: Aspirin 81 MG Tab.Chew PO SCH (01:43)
[2021-01-08] MEDS: cefTRIAXone 1 GM in Premix Bag 1 BAG IV SCH (01:44)
[2021-01-08 02:06] LABS: HEMOGLOBIN A1C 6.3 %
[2021-01-08] MEDS ORDERED: Pantoprazole 40 MG in Sodium Chloride 0.9% 10 ML IV SCH (07:00)
--- NOTE | 2021-01-08 07:11 | PCM.HP.2 ---
<Fletcher Barnett - Last Filed: 01/08/21 11:59> H&P History of Present Illness - General Date of Service: 01/08/21 Admit Problem/Dx: Admission Diagnosis/Problem Admission Diagnosis/Problem Hypertensive crisis - History of Present Illness Initial Comments - Free Text/Narative: 45-year-old female admitted for hypertensive crisis and TIA. Patient presented to the ED with paresthesias of the upper extremities bilaterally and a left facial droop with markedly elevated blood pressure. Per documentation it was reported that her blood pressure was 210/125 prior to arrival in the ED. Patient reports that approximately 30 minutes prior to arrival she started experiencing paresthesias in her upper extremities. On admission patient denies any recent episodes of weakness or decreased sensat ion of extremities. Patient states that she did not realize she had high blood pressure as she has not seen a doctor in many many years. Patient states that she does not have any past medical history but cannot confirm due to poor medical follow-up. Patient denied weakness, headaches, lightheadedness, blurry vision, decrease sensation in extremity, decreased strength in extremities, denies slurring speech, denies chest pain, shortness of breath, abdominal pain. Patient has never taken medications for hypertension. CT head- no intracranial hemorrhage or territorial infarction noted. CT angio head/neck- no intracranial large vessel occlusion, no stenosis rotted right or left internal carotid artery, normal CT angiogram of the head and neck. Brain MRI- no acute intracranial abnormality. Patient admitted, will monitor blood pressures and start patient on medication. - Related Data Allergies/Adverse Reactions: Allergies Allergy/AdvReac Type Severity Reaction Status Date / Time No Known Allergies Allergy Verified 01/08/21 00:58 Home Medications: Home Meds Aspirin 81 mg PO DAILY #21 tab.chew 01/09/21 [Rx] amLODIPine [Norvasc] 10 mg PO DAILY 15 Days #30 tablet 01/09/21 [Rx] cephALEXin [Keflex] 500 mg PO BID 3 Days #6 cap 01/09/21 [Rx] hydroCHLOROthiazide [Hydrochlorothiazide] 12.5 mg PO DAILY #21 cap 01/09/21 [Rx] lisinopriL [Prinivil] 20 mg PO DAILY #30 tablet 01/09/21 [Rx] metFORMIN [Glucophage XR] 500 mg PO WITHDINNER #21 tab.er 01/09/21 [Rx] Past Medical History - Past Health History Medical/Surgical History: Denies Medical/Surgical History HEENT History: Reports: None Cardiovascular History: Reports: None Respiratory History: Reports: None Gastrointestinal History: Reports: None Genitourinary History: Reports: None HOSE SEAMER History: Reports: , Other (See Below) Other OB/BYN History: Musculoskeletal History: Reports: None Neurological History: Reports: None Psychiatric History: Reports: None Endocrine/Metabolic History: Reports: None Insulin Pump Model and Radiator Fitter: None Hematologic History: Reports: None Immunologic History: Reports: None Oncologic (Cancer) History: Reports: None Dermatologic History: Reports: None - Past Surgical History Head Surgeries/Procedures: Reports: None Female Surgical History: Reports: None Social & Family History - Tobacco Use Tobacco Use Status *Q: Never Tobacco User Second Hand Smoke Exposure: No - Caffeine Use Caffeine Use: Reports: Coffee, Soda - Recreational Drug Use Recreational Drug Use: No H&P Review of Systems - Review of Systems: Review Of Systems: See Below Exam - Exam Exam: See Below - Vital Signs Vital Signs: Last Vital Signs Temp 96.8 F L 01/08/21 07:06 Pulse 68 01/08/21 07:06 Resp 20 01/08/21 07:06 BP 186/88 H 01/08/21 07:06 Pulse Ox 93 L 01/08/21 07:06 Weight: 155.582 kg - Patient Data Lab Results Last 24 hrs: Laboratory Results - last 24 hr 01/07/21 01/07/21 01/07/21 Range/Units 22:50 22:50 22:50 WBC 10.54 (4.0-11.0) K/uL RBC 5.26 (4.30-5.90) M/uL Hgb 14.1 (12.0-16.0) g/dL Hct 42.9 (36.0-46.0) % MCV 81.6 (80.0-98.0) fL MCH 26.8 L (27.0-32.0) pg MCHC 32.9 (31.0-37.0) g/dL RDW Std Deviation 43.4 (28.0-62.0) fl RDW Coeff of Alex 15 (11.0-15.0) % Plt Count 389 (150-400) K/uL MPV 9.80 (7.40-12.00) fL Neut % (Auto) 55.1 (48.0-80.0) % Lymph % (Auto) 27.7 (16.0-40.0) % Hancock % (Auto) 10.9 (0.0-15.0) % Eos % (Auto) 6.0 (0.0-7.0) % Baso % (Auto) 0.3 (0.0-1.5) % Neut # (Auto) 5.8 H (1.4-5.7) K/uL Lymph # (Auto) 2.9 H (0.6-2.4) K/uL Hancock # (Auto) 1.2 H (0.0-0.8) K/uL Eos # (Auto) 0.6 (0.0-0.7) K/uL Baso # (Auto) 0.0 (0.0-0.1) K/uL Nucleated RBC % 0.0 /100WBC Nucleated RBCs # 0 K/uL INR 0.99 APTT 26.1 (18.6-31.3) SEC Sodium 137 (136-145) mmol/L Potassium 3.7 (3.5-5.1) mmol/L Chloride 102 (98-107) mmol/L Carbon Dioxide 26.8 (21.0-32.0) mmol/L BUN 13 (7.0-18.0) mg/dL Creatinine 0.8 (0.6-1.0) mg/dL Est Cr Clr Drug Dosing 84.88 mL/min Estimated GFR (MDRD) > 60.0 ml/min Glucose 146 H (74-106) mg/dL Hemoglobin A1c (4.5 - 6.2) % Calcium 9.2 (8.5-10.1) mg/dL Total Bilirubin 0.3 (0.2-1.0) mg/dL AST 18 (15-37) IU/L ALT 31 (14-63) IU/L Alkaline Phosphatase 56 (46-116) U/L Troponin I < 0.050 (0.000-0.056) ng/mL Total Protein 7.8 (6.4-8.2) g/dL Albumin 3.7 (3.4-5.0) g/dL Globulin 4.1 H (2.6-4.0) g/dL Albumin/Globulin Ratio 0.9 (0.9-1.6) Triglycerides (0-200) mg/dL Cholesterol (50-200) mg/dL LDL Cholesterol, Calc (60-180) mg/dL VLDL Cholesterol (5-55) mg/dL HDL Cholesterol (40-60) mg/dL Cholesterol/HDL Ratio (3.3-6.0) TSH 3rd Generation 2.38 (0.36-3.74) uIU/mL HCG, Qual (NEG) Urine Color Urine Appearance Urine pH (5.0-8.0) Ur Specific B[place]our (1.001-1.035) Urine Protein (NEGATIVE) mg/dL Urine Glucose (UA) (NEGATIVE) mg/dL Urine Ketones (NEGATIVE) mg/dL Urine Occult Blood (NEGATIVE) Urine Nitrite (NEGATIVE) Urine Bilirubin (NEGATIVE) Urine Urobilinogen (<2.0) EU/dL Ur Leukocyte Esterase (NEGATIVE) Urine RBC (0-2/HPF) Urine WBC (0-5/HPF) Ur Epithelial Cells (NONE-FEW) Urine Bacteria (NEGATIVE) Urine Mucus (NONE-MOD) Urine Opiates Screen (NEGATIVE) Ur Oxycodone Screen (NEGATIVE) Urine Methadone Screen (NEGATIVE) Ur Barbiturates Screen (NEGATIVE) Ur Phencyclidine Scrn (NEGATIVE) Ur Amphetamine Screen (NEGATIVE) U Methamphetamines Scrn (NEGATIVE) U Benzodiazepines Scrn (NEGATIVE) U Cocaine Metab Screen (NEGATIVE) U Marijuana (THC) Screen (NEGATIVE) Ethyl Alcohol < 3.0 mg/dL SARS-CoV-2 RNA (MARCELLUS) (NEGATIVE) 01/07/21 01/07/21 01/07/21 Range/Units 22:50 22:50 22:50 WBC (4.0-11.0) K/uL RBC (4.30-5.90) M/uL Hgb (12.0-16.0) g/dL Hct (36.0-46.0) % MCV (80.0-98.0) fL MCH (27.0-32.0) pg MCHC (31.0-37.0) g/dL RDW Std Deviation (28.0-62.0) fl RDW Coeff of Alex (11.0-15.0) % Plt Count (150-400) K/uL MPV (7.40-12.00) fL Neut % (Auto) (48.0-80.0) % Lymph % (Auto) (16.0-40.0) % Hancock % (Auto) (0.0-15.0) % Eos % (Auto) (0.0-7.0) % Baso % (Auto) (0.0-1.5) % Neut # (Auto) (1.4-5.7) K/uL Lymph # (Auto) (0.6-2.4) K/uL Hancock # (Auto) (0.0-0.8) K/uL Eos # (Auto) (0.0-0.7) K/uL Baso # (Auto) (0.0-0.1) K/uL Nucleated RBC % /100WBC Nucleated RBCs # K/uL INR APTT (18.6-31.3) SEC Sodium (136-145) mmol/L Potassium (3.5-5.1) mmol/L Chloride (98-107) mmol/L Carbon Dioxide (21.0-32.0) mmol/L BUN (7.0-18.0) mg/dL Creatinine (0.6-1.0) mg/dL Est Cr Clr Drug Dosing mL/min Estimated GFR (MDRD) ml/min Glucose (74-106) mg/dL Hemoglobin A1c 6.3 H (4.5 - 6.2) % Calcium (8.5-10.1) mg/dL Total Bilirubin (0.2-1.0) mg/dL AST (15-37) IU/L ALT (14-63) IU/L Alkaline Phosphatase (46-116) U/L Troponin I (0.000-0.056) ng/mL Total Protein (6.4-8.2) g/dL Albumin (3.4-5.0) g/dL Globulin (2.6-4.0) g/dL Albumin/Globulin Ratio (0.9-1.6) Triglycerides 173 (0-200) mg/dL Cholesterol 200 (50-200) mg/dL LDL Cholesterol, Calc 125 (60-180) mg/dL VLDL Cholesterol 34 (5-55) mg/dL HDL Cholesterol 40 (40-60) mg/dL Cholesterol/HDL Ratio 5.0 (3.3-6.0) TSH 3rd Generation (0.36-3.74) uIU/mL HCG, Qual NEGATIVE (NEG) Urine Color Urine Appearance Urine pH (5.0-8.0) Ur Specific Balfour (1.001-1.035) Urine Protein (NEGATIVE) mg/dL Urine Glucose (UA) (NEGATIVE) mg/dL Urine Ketones (NEGATIVE) mg/dL Urine Occult Blood (NEGATIVE) Urine Nitrite (NEGATIVE) Urine Bilirubin (NEGATIVE) Urine Urobilinogen (<2.0) EU/dL Ur Leukocyte Esterase (NEGATIVE) Urine RBC (0-2/HPF) Urine WBC (0-5/HPF) Ur Epithelial Cells (NONE-FEW) Urine Bacteria (NEGATIVE) Urine Mucus (NONE-MOD) Urine Opiates Screen (NEGATIVE) Ur Oxycodone Screen (NEGATIVE) Urine Methadone Screen (NEGATIVE) Ur Barbiturates Screen (NEGATIVE) Ur Phencyclidine Scrn (NEGATIVE) Ur Amphetamine Screen (NEGATIVE) U Methamphetamines Scrn (NEGATIVE) U Benzodiazepines Scrn (NEGATIVE) U Cocaine Metab Screen (NEGATIVE) U Marijuana (THC) Screen (NEGATIVE) Ethyl Alcohol mg/dL SARS-CoV-2 RNA (MARCELLUS) (NEGATIVE) 01/07/21 01/07/21 01/07/21 Range/Units 23:20 23:20 23:25 WBC (4.0-11.0) K/uL RBC (4.30-5.90) M/uL Hgb (12.0-16.0) g/dL Hct (36.0-46.0) % MCV (80.0-98.0) fL MCH (27.0-32.0) pg MCHC (31.0-37.0) g/dL RDW Std Deviation (28.0-62.0) fl RDW Coeff of Alex (11.0-15.0) % Plt Count (150-400) K/uL MPV (7.40-12.00) fL Neut % (Auto) (48.0-80.0) % Lymph % (Auto) (16.0-40.0) % Hancock % (Auto) (0.0-15.0) % Eos % (Auto) (0.0-7.0) % Baso % (Auto) (0.0-1.5) % Neut # (Auto) (1.4-5.7) K/uL Lymph # (Auto) (0.6-2.4) K/uL Hancock # (Auto) (0.0-0.8) K/uL Eos # (Auto) (0.0-0.7) K/uL Baso # (Auto) (0.0-0.1) K/uL Nucleated RBC % /100WBC Nucleated RBCs # K/uL INR APTT (18.6-31.3) SEC Sodium (136-145) mmol/L Potassium (3.5-5.1) mmol/L Chloride (98-107) mmol/L Carbon Dioxide (21.0-32.0) mmol/L BUN (7.0-18.0) mg/dL Creatinine (0.6-1.0) mg/dL Est Cr Clr Drug Dosing mL/min Estimated GFR (MDRD) ml/min Glucose (74-106) mg/dL Hemoglobin A1c (4.5 - 6.2) % Calcium (8.5-10.1) mg/dL Total Bilirubin (0.2-1.0) mg/dL AST (15-37) IU/L ALT (14-63) IU/L Alkaline Phosphatase (46-116) U/L Troponin I (0.000-0.056) ng/mL Total Protein (6.4-8.2) g/dL Albumin (3.4-5.0) g/dL Globulin (2.6-4.0) g/dL Albumin/Globulin Ratio (0.9-1.6) Triglycerides (0-200) mg/dL Cholesterol (50-200) mg/dL LDL Cholesterol, Calc (60-180) mg/dL VLDL Cholesterol (5-55) mg/dL HDL Cholesterol (40-60) mg/dL Cholesterol/HDL Ratio (3.3-6.0) TSH 3rd Generation (0.36-3.74) uIU/mL HCG, Qual (NEG) Urine Color YELLOW Urine Appearance SLT CLOUDY Urine pH 6.5 (5.0-8.0) Ur Specific B[place]our 1.020 (1.001-1.035) Urine Protein 100 H (NEGATIVE) mg/dL Urine Glucose (UA) NEGATIVE (NEGATIVE) mg/dL Urine Ketones NEGATIVE (NEGATIVE) mg/dL Urine Occult Blood TRACE-LYSED H (NEGATIVE) Urine Nitrite POSITIVE H (NEGATIVE) Urine Bilirubin NEGATIVE (NEGATIVE) Urine Urobilinogen 0.2 (<2.0) EU/dL Ur Leukocyte Esterase NEGATIVE (NEGATIVE) Urine RBC NONE SEEN (0-2/HPF) Urine WBC 0-3 (0-5/HPF) Ur Epithelial Cells RARE (NONE-FEW) Urine Bacteria 3+ H (NEGATIVE) Urine Mucus LIGHT (NONE-MOD) Urine Opiates Screen NEGATIVE (NEGATIVE) Ur Oxycodone Screen NEGATIVE (NEGATIVE) Urine Methadone Screen NEGATIVE (NEGATIVE) Ur Barbiturates Screen NEGATIVE (NEGATIVE) Ur Phencyclidine Scrn NEGATIVE (NEGATIVE) Ur Amphetamine Screen NEGATIVE (NEGATIVE) U Methamphetamines Scrn NEGATIVE (NEGATIVE) U Benzodiazepines Scrn NEGATIVE (NEGATIVE) U Cocaine Metab Screen NEGATIVE (NEGATIVE) U Marijuana (THC) Screen NEGATIVE (NEGATIVE) Ethyl Alcohol mg/dL SARS-CoV-2 RNA (MARCELLUS) NEGATIVE (NEGATIVE) 01/08/21 Range/Units 05:19 WBC 11.47 H (4.0-11.0) K/uL RBC 5.00 (4.30-5.90) M/uL Hgb 13.3 (12.0-16.0) g/dL Hct 41.3 (36.0-46.0) % MCV 82.6 (80.0-98.0) fL MCH 26.6 L (27.0-32.0) pg MCHC 32.2 (31.0-37.0) g/dL RDW Std Deviation 44.4 (28.0-62.0) fl RDW Coeff of Alex 15 (11.0-15.0) % Plt Count 406 H (150-400) K/uL MPV 10.10 (7.40-12.00) fL Neut % (Auto) 49.9 (48.0-80.0) % Lymph % (Auto) 34.5 (16.0-40.0) % Hancock % (Auto) 10.6 (0.0-15.0) % Eos % (Auto) 4.6 (0.0-7.0) % Baso % (Auto) 0.4 (0.0-1.5) % Neut # (Auto) 5.7 (1.4-5.7) K/uL Lymph # (Auto) 4.0 H (0.6-2.4) K/uL Hancock # (Auto) 1.2 H (0.0-0.8) K/uL Eos # (Auto) 0.5 (0.0-0.7) K/uL Baso # (Auto) 0.1 (0.0-0.1) K/uL Nucleated RBC % 0.0 /100WBC Nucleated RBCs # 0 K/uL INR APTT (18.6-31.3) SEC Sodium (136-145) mmol/L Potassium (3.5-5.1) mmol/L Chloride (98-107) mmol/L Carbon Dioxide (21.0-32.0) mmol/L BUN (7.0-18.0) mg/dL Creatinine (0.6-1.0) mg/dL Est Cr Clr Drug Dosing mL/min Estimated GFR (MDRD) ml/min Glucose (74-106) mg/dL Hemoglobin A1c (4.5 - 6.2) % Calcium (8.5-10.1) mg/dL Total Bilirubin (0.2-1.0) mg/dL AST (15-37) IU/L ALT (14-63) IU/L Alkaline Phosphatase (46-116) U/L Troponin I (0.000-0.056) ng/mL Total Protein (6.4-8.2) g/dL Albumin (3.4-5.0) g/dL Globulin (2.6-4.0) g/dL Albumin/Globulin Ratio (0.9-1.6) Triglycerides (0-200) mg/dL Cholesterol (50-200) mg/dL LDL Cholesterol, Calc (60-180) mg/dL VLDL Cholesterol (5-55) mg/dL HDL Cholesterol (40-60) mg/dL Cholesterol/HDL Ratio (3.3-6.0) TSH 3rd Generation (0.36-3.74) uIU/mL HCG, Qual (NEG) Urine Color Urine Appearance Urine pH (5.0-8.0) Ur Specific B[place]our (1.001-1.035) Urine Protein (NEGATIVE) mg/dL Urine Glucose (UA) (NEGATIVE) mg/dL Urine Ketones (NEGATIVE) mg/dL Urine Occult Blood (NEGATIVE) Urine Nitrite (NEGATIVE) Urine Bilirubin (NEGATIVE) Urine Urobilinogen (<2.0) EU/dL Ur Leukocyte Esterase (NEGATIVE) Urine RBC (0-2/HPF) Urine WBC (0-5/HPF) Ur Epithelial Cells (NONE-FEW) Urine Bacteria (NEGATIVE) Urine Mucus (NONE-MOD) Urine Opiates Screen (NEGATIVE) Ur Oxycodone Screen (NEGATIVE) Urine Methadone Screen (NEGATIVE) Ur Barbiturates Screen (NEGATIVE) Ur Phencyclidine Scrn (NEGATIVE) Ur Amphetamine Screen (NEGATIVE) U Methamphetamines Scrn (NEGATIVE) U Benzodiazepines Scrn (NEGATIVE) U Cocaine Metab Screen (NEGATIVE) U Marijuana (THC) Screen (NEGATIVE) Ethyl Alcohol mg/dL SARS-CoV-2 RNA (MARCELLUS) (NEGATIVE) Result Diagrams: 01/08/21 05:19 01/08/21 05:19 Sepsis Event Note - Evaluation Sepsis Screening Result: No Definite Risk - Focused Exam Vital Signs: Vital Signs Temp Pulse Resp BP BP Pulse Ox Pulse Ox 01/08/21 07:06 96.8 F L 68 20 186/88 H 93 L 01/08/21 04:00 98.3 F 78 17 168/87 H 92 L 01/08/21 01:46 96 96 01/08/21 01:28 171/102 H 01/08/21 00:45 97.9 F 101 H 18 179/103 H 96 01/08/21 00:30 101 H 122/75 93 L 01/08/21 00:00 102 H 143/90 H 96 01/07/21 23:45 96 163/90 H 95 01/07/21 23:30 100 195/105 H 95 01/07/21 23:12 87 189/94 H 97 01/07/21 22:56 195/99 H 01/07/21 22:33 169/81 H 01/07/21 22:05 97.5 F 100 18 175/129 H 97 - Problem List (1) Uncontrolled hypertension SNOMED Code(s): 83776188, 93360008 ICD Code: I10 - ESSENTIAL (PRIMARY) HYPERTENSION Status: Acute (2) Prediabetes SNOMED Code(s): 322025195 ICD Code: R73.03 - PREDIABETES Status: Acute (3) Hypertensive crisis SNOMED Code(s): 466757972 ICD Code: I16.9 - HYPERTENSIVE CRISIS, UNSPECIFIED Status: Acute (4) TIA (transient ischemic attack) SNOMED Code(s): 691425233 ICD Code: G45.9 - TRANSIENT CEREBRAL ISCHEMIC ATTACK, UNSPECIFIED Status: Acute Problem List Initiated/Reviewed/Updated: Yes Orders Last 24hrs: Active Orders 24 hr Category Date Time Status Patient Status [ADT] Routine ADT 01/07/21 23:43 Active Ambulate [RC] ASDIRECTED Care 01/08/21 01:32 Active Antiembolic Devices [RC] PER UNIT ROUTINE Care 01/08/21 01:32 Active Assess Neurological Status [RC] ASDIRECTED Care 01/07/21 22:05 Active Bedrest [RC] ASDIRECTED Care 01/07/21 22:05 Active Cardiac Monitoring [RC] . DIRECTED Care 01/07/21 22:05 Active NIH Stroke Scale [RC] ASDIRECTED Care 01/07/21 22:05 Active Nursing Bedside Swallow Screen [RC] ASDIRECTED Care 01/07/21 22:05 Active Oxygen Therapy [RC] ASDIRECTED Care 01/07/21 22:05 Active Oxygen Therapy [RC] ASDIRECTED Care 01/08/21 01:31 Active Pulse Oximetry [RC] ASDIRECTED Care 01/08/21 01:32 Active RT Aerosol Therapy [RC] ASDIRECTED Care 01/08/21 01:25 Active Stroke Education, General [RC] .PRN Care 01/07/21 22:05 Active Telemetry Monitoring [Cardiac Monitoring] [RC] Q8H Care 01/08/21 00:40 Active Vital Signs [RC] Q15M Care 01/07/21 22:05 Active Vital Signs [RC] Q4H Care 01/08/21 01:31 Active Heart Healthy Diet [DIET] Diet 01/08/21 Breakfast Active Brain w wo Cont [MR] Routine Exams 01/08/21 08:00 Ordered CULTURE URINE [RM] Routine Lab 01/08/21 00:00 Received Albuterol/Ipratropium [DuoNeb 3.0-0.5 MG/3 ML] Med 01/08/21 01:25 Active 3 ml NEB Q4HRRT PRN Aspirin Med 01/08/21 01:30 Active 81 mg PO DAILY Labetalol [Normodyne] Med 01/08/21 01:23 Active 20 mg IVPUSH Q6H PRN Ondansetron [Zofran] Med 01/08/21 01:25 Active 4 mg IVPUSH Q6H PRN Pantoprazole [ProTONIX IV] 40 mg Med 01/08/21 09:00 Active Sodium Chloride 0.9% [Normal Saline] 10 ml IV DAILY Sodium Chloride 0.9% [Normal Saline] Med 01/07/21 22:04 Active 10 ml IV ASDIRECTED PRN Sodium Chloride 0.9% [Saline Flush] Med 01/07/21 22:04 Active 10 ml FLUSH ASDIRECTED PRN Sodium Chloride 0.9% [Saline Flush] Med 01/07/21 22:04 Active 2.5 ml FLUSH ASDIRECTED PRN atorvaSTATin [Lipitor] Med 01/08/21 21:00 Active 40 mg PO BEDTIME cefTRIAXone [Rocephin in Dextrose,Iso-Osm 1 GM/50 ML] 1 Med 01/08/21 01:30 Active gm Premix Bag 1 bag IV Q24H Peripheral IV Insertion Adult [OM.PC] Stat Oth 01/07/21 22:05 Ordered Peripheral IV Insertion Adult [OM.PC] Stat Oth 01/07/21 22:05 Ordered SCD [Sequential Compression Device] [OM.PC] Routine Oth 01/08/21 01:32 Ordered Resuscitation Status Stat Resus Stat 01/07/21 22:04 Ordered Medication Orders Albuterol/Ipratropium (Albuterol/Ipratropium 3.0-0.5 Mg/3 Ml Neb Soln) 3 ml NEB Q4HRRT PRN PRN Reason: Shortness of Breath Aspirin (Aspirin 81 Mg Tab.Chew) 81 mg PO DAILY [facility] Last Admin: 01/08/21 01:43 Dose: 81 mg Documented by: ETHAN Atorvastatin Calcium (Atorvastatin 40 Mg Tab) 40 mg PO BEDTIME [facility] Ceftriaxone Sodium/Dextrose 1 (gm/ Premix) 50 mls @ 100 mls/hr IV Q24H [facility] Last Admin: 01/08/21 01:44 Dose: 100 mls/hr Documented by: ETHAN Pantoprazole Sodium 40 mg/ (Sodium Chloride) 10 mls @ 300 mls/hr IV DAILY [facility] Labetalol HCl (Labetalol 100 Mg/20 Ml Mdv) 20 mg IVPUSH Q6H PRN; Protocol PRN Reason: Hypertension Ondansetron HCl (Ondansetron 4 Mg/2 Ml Sdv) 4 mg IVPUSH Q6H PRN PRN Reason: Nausea/Vomiting Sodium Chloride (Sodium Chloride 0.9% 10 Ml Syringe) 10 ml FLUSH ASDIRECTED PRN PRN Reason: Keep Vein Open Last Admin: 01/07/21 23:02 Dose: 10 ml Documented by: VIOLETA Sodium Chloride (Sodium Chloride 0.9% 2.5 Ml Syringe) 2.5 ml FLUSH ASDIRECTED PRN PRN Reason: Keep Vein Open Last Admin: 01/07/21 23:02 Dose: 2.5 ml Documented by: DANIARI Sodium Chloride (Sodium Chloride 0.9% 10 Ml Sdv) 10 ml IV ASDIRECTED PRN PRN Reason: IV Use Assessment/Plan Comment:: Uncontrolled Hypertension-amlodipine 10 mg p.o. daily, hydrochlorothiazide 12.5 mg p.o. daily, lisinopril 20 mg p.o. daily. Will adjust medications as needed based on blood pressure measurements. TIA- CT Head Negative, MRI W/WO negative, CTA Head/Neck negative. Patient does not have any neurological deficits appreciable at this time. Started asprin 81mg. UTI- urine cultures pending, Rocephin Prediabetes-Metformin 500 mg daily at evening meal <Alma Christianson - Last Filed: 01/12/21 15:38> H&P History of Present Illness - General Admit Problem/Dx: Admission Diagnosis/Problem Admission Diagnosis/Problem Hypertensive crisis - History of Present Illness Initial Comments - Free Text/Narative: I performed a history and physical exam of the patient and discussed management with resident. I have reviewed the residents note and agree with documented findings and plan unless otherwise specified in my note.' Exam - Vital Signs Vital Signs: Last Vital Signs Temp 35.6 C L 01/09/21 12:40 Pulse 60 01/09/21 12:40 Resp 18 01/09/21 12:40 BP 149/82 H 01/09/21 12:40 Pulse Ox 94 L 01/09/21 12:40 - Patient Data Result Diagrams: 01/09/21 05:32 01/09/21 05:32
[2021-01-08] MEDS ORDERED: Gadobenate Dimeglumine 529 MG/ML 20 ML SDV IVPUSH STA (07:48)
[2021-01-08 08:12] LABS: BLOOD UREA NITROGEN,BUN 12 mg/dL (7.0-18.0); CARBON DIOXIDE,CO2 27.8 mmol/L (21.0-32.0); CHLORIDE,CL 103 mmol/L (98-107); GLUCOSE RANDOM 117 mg/dL (74-106); POTASSIUM,K 3.9 mmol/L (3.5-5.1); SODIUM,NA 138 mmol/L (136-145)
[2021-01-08] MEDS ORDERED: Potassium Chloride 20 MEQ Tab.ER PO ONE (09:00)
--- NOTE | 2021-01-08 09:05 | MR ---
INDICATION Stroke symptoms. TECHNIQUE Multiplanar multisequence MR imaging was acquired through the brain prior to and following intravenous contrast. COMPARISON CT brain 01/07/2021. FINDINGS The ventricles and sulci are within normal limits for patient age. No mass effect or midline shift. Punctate T2 FLAIR hyperintensity within the anterior frontal white matter (series 501, image 15), nonspecific though potentially related to migraine headaches or minimal chronic microvascular ischemic changes. No intracranial hemorrhage or pathologic extra-axial fluid collection. No pathologic intracranial enhancement. No diffusion restriction to suggest acute infarction. The major arterial flow voids of the skullbase are preserved. The globes are symmetric. Mild left maxillary sinus mucosal thickening. Minimal mastoid fluid. IMPRESSION No acute intracranial abnormality. Dictated by Scott Etienne MD @ Jan 08 2021 8:31AM Signed by Dr. Scott Etienne @ Jan 08 2021 9:03AM
[2021-01-08] MEDS: Pantoprazole 40 MG in Sodium Chloride 0.9% 10 ML IV SCH (09:33)
[2021-01-08] MEDS ORDERED: Lisinopril 10 MG Tab PO ONE (10:17)
--- NOTE | 2021-01-08 10:23 | PCM.PN ---
- Patient Data Vitals - Most Recent: Last Vital Signs Temp 96.8 F L 01/08/21 07:06 Pulse 62 01/08/21 09:35 Resp 20 01/08/21 07:06 BP 204/100 H 01/08/21 09:35 Pulse Ox 93 L 01/08/21 07:06 Weight - Most Recent: 343 lb I&O - Last 24 Hours: Intake & Output 01/07/21 01/08/21 01/08/21 22:59 06:59 14:59 Intake Total 1907 Output Total 350 Balance 1557 Lab Results Last 24 Hours: Laboratory Results - last 24 hr 01/07/21 01/07/21 01/07/21 Range/Units 22:50 22:50 22:50 WBC 10.54 (4.0-11.0) K/uL RBC 5.26 (4.30-5.90) M/uL Hgb 14.1 (12.0-16.0) g/dL Hct 42.9 (36.0-46.0) % MCV 81.6 (80.0-98.0) fL MCH 26.8 L (27.0-32.0) pg MCHC 32.9 (31.0-37.0) g/dL RDW Std Deviation 43.4 (28.0-62.0) fl RDW Coeff of Alex 15 (11.0-15.0) % Plt Count 389 (150-400) K/uL MPV 9.80 (7.40-12.00) fL Neut % (Auto) 55.1 (48.0-80.0) % Lymph % (Auto) 27.7 (16.0-40.0) % [place] % (Auto) 10.9 (0.0-15.0) % Eos % (Auto) 6.0 (0.0-7.0) % Baso % (Auto) 0.3 (0.0-1.5) % Neut # (Auto) 5.8 H (1.4-5.7) K/uL Lymph # (Auto) 2.9 H (0.6-2.4) K/uL [place] # (Auto) 1.2 H (0.0-0.8) K/uL Eos # (Auto) 0.6 (0.0-0.7) K/uL Baso # (Auto) 0.0 (0.0-0.1) K/uL Nucleated RBC % 0.0 /100WBC Nucleated RBCs # 0 K/uL INR 0.99 APTT 26.1 (18.6-31.3) SEC Sodium 137 (136-145) mmol/L Potassium 3.7 (3.5-5.1) mmol/L Chloride 102 (98-107) mmol/L Carbon Dioxide 26.8 (21.0-32.0) mmol/L BUN 13 (7.0-18.0) mg/dL Creatinine 0.8 (0.6-1.0) mg/dL Est Cr Clr Drug Dosing 84.88 mL/min Estimated GFR (MDRD) > 60.0 ml/min Glucose 146 H (74-106) mg/dL Hemoglobin A1c (4.5 - 6.2) % Calcium 9.2 (8.5-10.1) mg/dL Phosphorus (2.6-4.7) mg/dL Magnesium (1.8-2.4) mg/dL Total Bilirubin 0.3 (0.2-1.0) mg/dL AST 18 (15-37) IU/L ALT 31 (14-63) IU/L Alkaline Phosphatase 56 (46-116) U/L Troponin I < 0.050 (0.000-0.056) ng/mL Total Protein 7.8 (6.4-8.2) g/dL Albumin 3.7 (3.4-5.0) g/dL Globulin 4.1 H (2.6-4.0) g/dL Albumin/Globulin Ratio 0.9 (0.9-1.6) Triglycerides (0-200) mg/dL Cholesterol (50-200) mg/dL LDL Cholesterol, Calc (60-180) mg/dL VLDL Cholesterol (5-55) mg/dL HDL Cholesterol (40-60) mg/dL Cholesterol/HDL Ratio (3.3-6.0) TSH 3rd Generation 2.38 (0.36-3.74) uIU/mL HCG, Qual (NEG) Urine Color Urine Appearance Urine pH (5.0-8.0) Ur Specific [place] (1.001-1.035) Urine Protein (NEGATIVE) mg/dL Urine Glucose (UA) (NEGATIVE) mg/dL Urine Ketones (NEGATIVE) mg/dL Urine Occult Blood (NEGATIVE) Urine Nitrite (NEGATIVE) Urine Bilirubin (NEGATIVE) Urine Urobilinogen (<2.0) EU/dL Ur Leukocyte Esterase (NEGATIVE) Urine RBC (0-2/HPF) Urine WBC (0-5/HPF) Ur Epithelial Cells (NONE-FEW) Urine Bacteria (NEGATIVE) Urine Mucus (NONE-MOD) Urine Opiates Screen (NEGATIVE) Ur Oxycodone Screen (NEGATIVE) Urine Methadone Screen (NEGATIVE) Ur Barbiturates Screen (NEGATIVE) Ur Phencyclidine Scrn (NEGATIVE) Ur Amphetamine Screen (NEGATIVE) U Methamphetamines Scrn (NEGATIVE) U Benzodiazepines Scrn (NEGATIVE) U Cocaine Metab Screen (NEGATIVE) U Marijuana (THC) Screen (NEGATIVE) Ethyl Alcohol < 3.0 mg/dL SARS-CoV-2 RNA (MARCELLUS) (NEGATIVE) 01/07/21 01/07/21 01/07/21 Range/Units 22:50 22:50 22:50 WBC (4.0-11.0) K/uL RBC (4.30-5.90) M/uL Hgb (12.0-16.0) g/dL Hct (36.0-46.0) % MCV (80.0-98.0) fL MCH (27.0-32.0) pg MCHC (31.0-37.0) g/dL RDW Std Deviation (28.0-62.0) fl RDW Coeff of Alex (11.0-15.0) % Plt Count (150-400) K/uL MPV (7.40-12.00) fL Neut % (Auto) (48.0-80.0) % Lymph % (Auto) (16.0-40.0) % [place] % (Auto) (0.0-15.0) % Eos % (Auto) (0.0-7.0) % Baso % (Auto) (0.0-1.5) % Neut # (Auto) (1.4-5.7) K/uL Lymph # (Auto) (0.6-2.4) K/uL [place] # (Auto) (0.0-0.8) K/uL Eos # (Auto) (0.0-0.7) K/uL Baso # (Auto) (0.0-0.1) K/uL Nucleated RBC % /100WBC Nucleated RBCs # K/uL INR APTT (18.6-31.3) SEC Sodium (136-145) mmol/L Potassium (3.5-5.1) mmol/L Chloride (98-107) mmol/L Carbon Dioxide (21.0-32.0) mmol/L BUN (7.0-18.0) mg/dL Creatinine (0.6-1.0) mg/dL Est Cr Clr Drug Dosing mL/min Estimated GFR (MDRD) ml/min Glucose (74-106) mg/dL Hemoglobin A1c 6.3 H (4.5 - 6.2) % Calcium (8.5-10.1) mg/dL Phosphorus (2.6-4.7) mg/dL Magnesium (1.8-2.4) mg/dL Total Bilirubin (0.2-1.0) mg/dL AST (15-37) IU/L ALT (14-63) IU/L Alkaline Phosphatase (46-116) U/L Troponin I (0.000-0.056) ng/mL Total Protein (6.4-8.2) g/dL Albumin (3.4-5.0) g/dL Globulin (2.6-4.0) g/dL Albumin/Globulin Ratio (0.9-1.6) Triglycerides 173 (0-200) mg/dL Cholesterol 200 (50-200) mg/dL LDL Cholesterol, Calc 125 (60-180) mg/dL VLDL Cholesterol 34 (5-55) mg/dL HDL Cholesterol 40 (40-60) mg/dL Cholesterol/HDL Ratio 5.0 (3.3-6.0) TSH 3rd Generation (0.36-3.74) uIU/mL HCG, Qual NEGATIVE (NEG) Urine Color Urine Appearance Urine pH (5.0-8.0) Ur Specific [place] (1.001-1.035) Urine Protein (NEGATIVE) mg/dL Urine Glucose (UA) (NEGATIVE) mg/dL Urine Ketones (NEGATIVE) mg/dL Urine Occult Blood (NEGATIVE) Urine Nitrite (NEGATIVE) Urine Bilirubin (NEGATIVE) Urine Urobilinogen (<2.0) EU/dL Ur Leukocyte Esterase (NEGATIVE) Urine RBC (0-2/HPF) Urine WBC (0-5/HPF) Ur Epithelial Cells (NONE-FEW) Urine Bacteria (NEGATIVE) Urine Mucus (NONE-MOD) Urine Opiates Screen (NEGATIVE) Ur Oxycodone Screen (NEGATIVE) Urine Methadone Screen (NEGATIVE) Ur Barbiturates Screen (NEGATIVE) Ur Phencyclidine Scrn (NEGATIVE) Ur Amphetamine Screen (NEGATIVE) U Methamphetamines Scrn (NEGATIVE) U Benzodiazepines Scrn (NEGATIVE) U Cocaine Metab Screen (NEGATIVE) U Marijuana (THC) Screen (NEGATIVE) Ethyl Alcohol mg/dL SARS-CoV-2 RNA (MARCELLUS) (NEGATIVE) 01/07/21 01/07/21 01/07/21 Range/Units 23:20 23:20 23:25 WBC (4.0-11.0) K/uL RBC (4.30-5.90) M/uL Hgb (12.0-16.0) g/dL Hct (36.0-46.0) % MCV (80.0-98.0) fL MCH (27.0-32.0) pg MCHC (31.0-37.0) g/dL RDW Std Deviation (28.0-62.0) fl RDW Coeff of Alex (11.0-15.0) % Plt Count (150-400) K/uL MPV (7.40-12.00) fL Neut % (Auto) (48.0-80.0) % Lymph % (Auto) (16.0-40.0) % [place] % (Auto) (0.0-15.0) % Eos % (Auto) (0.0-7.0) % Baso % (Auto) (0.0-1.5) % Neut # (Auto) (1.4-5.7) K/uL Lymph # (Auto) (0.6-2.4) K/uL [place] # (Auto) (0.0-0.8) K/uL Eos # (Auto) (0.0-0.7) K/uL Baso # (Auto) (0.0-0.1) K/uL Nucleated RBC % /100WBC Nucleated RBCs # K/uL INR APTT (18.6-31.3) SEC Sodium (136-145) mmol/L Potassium (3.5-5.1) mmol/L Chloride (98-107) mmol/L Carbon Dioxide (21.0-32.0) mmol/L BUN (7.0-18.0) mg/dL Creatinine (0.6-1.0) mg/dL Est Cr Clr Drug Dosing mL/min Estimated GFR (MDRD) ml/min Glucose (74-106) mg/dL Hemoglobin A1c (4.5 - 6.2) % Calcium (8.5-10.1) mg/dL Phosphorus (2.6-4.7) mg/dL Magnesium (1.8-2.4) mg/dL Total Bilirubin (0.2-1.0) mg/dL AST (15-37) IU/L ALT (14-63) IU/L Alkaline Phosphatase (46-116) U/L Troponin I (0.000-0.056) ng/mL Total Protein (6.4-8.2) g/dL Albumin (3.4-5.0) g/dL Globulin (2.6-4.0) g/dL Albumin/Globulin Ratio (0.9-1.6) Triglycerides (0-200) mg/dL Cholesterol (50-200) mg/dL LDL Cholesterol, Calc (60-180) mg/dL VLDL Cholesterol (5-55) mg/dL HDL Cholesterol (40-60) mg/dL Cholesterol/HDL Ratio (3.3-6.0) TSH 3rd Generation (0.36-3.74) uIU/mL HCG, Qual (NEG) Urine Color YELLOW Urine Appearance SLT CLOUDY Urine pH 6.5 (5.0-8.0) Ur Specific [place] 1.020 (1.001-1.035) Urine Protein 100 H (NEGATIVE) mg/dL Urine Glucose (UA) NEGATIVE (NEGATIVE) mg/dL Urine Ketones NEGATIVE (NEGATIVE) mg/dL Urine Occult Blood TRACE-LYSED H (NEGATIVE) Urine Nitrite POSITIVE H (NEGATIVE) Urine Bilirubin NEGATIVE (NEGATIVE) Urine Urobilinogen 0.2 (<2.0) EU/dL Ur Leukocyte Esterase NEGATIVE (NEGATIVE) Urine RBC NONE SEEN (0-2/HPF) Urine WBC 0-3 (0-5/HPF) Ur Epithelial Cells RARE (NONE-FEW) Urine Bacteria 3+ H (NEGATIVE) Urine Mucus LIGHT (NONE-MOD) Urine Opiates Screen NEGATIVE (NEGATIVE) Ur Oxycodone Screen NEGATIVE (NEGATIVE) Urine Methadone Screen NEGATIVE (NEGATIVE) Ur Barbiturates Screen NEGATIVE (NEGATIVE) Ur Phencyclidine Scrn NEGATIVE (NEGATIVE) Ur Amphetamine Screen NEGATIVE (NEGATIVE) U Methamphetamines Scrn NEGATIVE (NEGATIVE) U Benzodiazepines Scrn NEGATIVE (NEGATIVE) U Cocaine Metab Screen NEGATIVE (NEGATIVE) U Marijuana (THC) Screen NEGATIVE (NEGATIVE) Ethyl Alcohol mg/dL SARS-CoV-2 RNA (MARCELLUS) NEGATIVE (NEGATIVE) 01/08/21 01/08/21 01/08/21 Range/Units 05:19 05:19 05:19 WBC 11.47 H (4.0-11.0) K/uL RBC 5.00 (4.30-5.90) M/uL Hgb 13.3 (12.0-16.0) g/dL Hct 41.3 (36.0-46.0) % MCV 82.6 (80.0-98.0) fL MCH 26.6 L (27.0-32.0) pg MCHC 32.2 (31.0-37.0) g/dL RDW Std Deviation 44.4 (28.0-62.0) fl RDW Coeff of Alex 15 (11.0-15.0) % Plt Count 406 H (150-400) K/uL MPV 10.10 (7.40-12.00) fL Neut % (Auto) 49.9 (48.0-80.0) % Lymph % (Auto) 34.5 (16.0-40.0) % [place] % (Auto) 10.6 (0.0-15.0) % Eos % (Auto) 4.6 (0.0-7.0) % Baso % (Auto) 0.4 (0.0-1.5) % Neut # (Auto) 5.7 (1.4-5.7) K/uL Lymph # (Auto) 4.0 H (0.6-2.4) K/uL [place] # (Auto) 1.2 H (0.0-0.8) K/uL Eos # (Auto) 0.5 (0.0-0.7) K/uL Baso # (Auto) 0.1 (0.0-0.1) K/uL Nucleated RBC % 0.0 /100WBC Nucleated RBCs # 0 K/uL INR APTT (18.6-31.3) SEC Sodium 138 (136-145) mmol/L Potassium 3.9 (3.5-5.1) mmol/L Chloride 103 (98-107) mmol/L Carbon Dioxide 27.8 (21.0-32.0) mmol/L BUN 12 (7.0-18.0) mg/dL Creatinine 0.7 (0.6-1.0) mg/dL Est Cr Clr Drug Dosing 97.01 mL/min Estimated GFR (MDRD) > 60.0 ml/min Glucose 117 H (74-106) mg/dL Hemoglobin A1c (4.5 - 6.2) % Calcium 8.7 (8.5-10.1) mg/dL Phosphorus 4.7 (2.6-4.7) mg/dL Magnesium 2.1 (1.8-2.4) mg/dL Total Bilirubin (0.2-1.0) mg/dL AST (15-37) IU/L ALT (14-63) IU/L Alkaline Phosphatase (46-116) U/L Troponin I (0.000-0.056) ng/mL Total Protein (6.4-8.2) g/dL Albumin (3.4-5.0) g/dL Globulin (2.6-4.0) g/dL Albumin/Globulin Ratio (0.9-1.6) Triglycerides (0-200) mg/dL Cholesterol (50-200) mg/dL LDL Cholesterol, Calc (60-180) mg/dL VLDL Cholesterol (5-55) mg/dL HDL Cholesterol (40-60) mg/dL Cholesterol/HDL Ratio (3.3-6.0) TSH 3rd Generation (0.36-3.74) uIU/mL HCG, Qual (NEG) Urine Color Urine Appearance Urine pH (5.0-8.0) Ur Specific [place] (1.001-1.035) Urine Protein (NEGATIVE) mg/dL Urine Glucose (UA) (NEGATIVE) mg/dL Urine Ketones (NEGATIVE) mg/dL Urine Occult Blood (NEGATIVE) Urine Nitrite (NEGATIVE) Urine Bilirubin (NEGATIVE) Urine Urobilinogen (<2.0) EU/dL Ur Leukocyte Esterase (NEGATIVE) Urine RBC (0-2/HPF) Urine WBC (0-5/HPF) Ur Epithelial Cells (NONE-FEW) Urine Bacteria (NEGATIVE) Urine Mucus (NONE-MOD) Urine Opiates Screen (NEGATIVE) Ur Oxycodone Screen (NEGATIVE) Urine Methadone Screen (NEGATIVE) Ur Barbiturates Screen (NEGATIVE) Ur Phencyclidine Scrn (NEGATIVE) Ur Amphetamine Screen (NEGATIVE) U Methamphetamines Scrn (NEGATIVE) U Benzodiazepines Scrn (NEGATIVE) U Cocaine Metab Screen (NEGATIVE) U Marijuana (THC) Screen (NEGATIVE) Ethyl Alcohol mg/dL SARS-CoV-2 RNA (MARCELLUS) (NEGATIVE) Med Orders - Current: Current Medications Albuterol/Ipratropium (Albuterol/Ipratropium 3.0-0.5 Mg/3 Ml Neb Soln) 3 ml NEB Q4HRRT PRN PRN Reason: Shortness of Breath Amlodipine Besylate (Amlodipine 5 Mg Tab) 10 mg PO DAILY [facility] Aspirin (Aspirin 81 Mg Tab.Chew) 81 mg PO DAILY [facility] Last Admin: 01/08/21 01:43 Dose: 81 mg Documented by: Atorvastatin Calcium (Atorvastatin 40 Mg Tab) 40 mg PO BEDTIME [facility] Hydrochlorothiazide (Hydrochlorothiazide 12.5 Mg Cap) 12.5 mg PO DAILY [facility] Ceftriaxone Sodium/Dextrose 1 (gm/ Premix) 50 mls @ 100 mls/hr IV Q24H [facility] Last Admin: 01/08/21 01:44 Dose: 100 mls/hr Documented by: Pantoprazole Sodium 40 mg/ (Sodium Chloride) 10 mls @ 300 mls/hr IV DAILY [facility] Last Admin: 01/08/21 09:33 Dose: 300 mls/hr Documented by: Labetalol HCl (Labetalol 100 Mg/20 Ml Mdv) 20 mg IVPUSH Q6H PRN; Protocol PRN Reason: Hypertension Last Admin: 01/08/21 09:45 Dose: 20 mg Documented by: Lisinopril (Lisinopril 10 Mg Tab) 20 mg PO ONETIME ONE Stop: 01/08/21 10:18 Metformin HCl (Metformin 500 Mg Tab.Er) 500 mg PO WITHDINNER [facility] Ondansetron HCl (Ondansetron 4 Mg/2 Ml Sdv) 4 mg IVPUSH Q6H PRN PRN Reason: Nausea/Vomiting Sodium Chloride (Sodium Chloride 0.9% 10 Ml Syringe) 10 ml FLUSH ASDIRECTED PRN PRN Reason: Keep Vein Open Last Admin: 01/07/21 23:02 Dose: 10 ml Documented by: Sodium Chloride (Sodium Chloride 0.9% 2.5 Ml Syringe) 2.5 ml FLUSH ASDIRECTED PRN PRN Reason: Keep Vein Open Last Admin: 01/07/21 23:02 Dose: 2.5 ml Documented by: Sodium Chloride (Sodium Chloride 0.9% 10 Ml Sdv) 10 ml IV ASDIRECTED PRN PRN Reason: IV Use Discontinued Medications Gadobenate Dimeglumine (Gadobenate Dimeglumine 529 Mg/Ml 20 Ml Sdv) 20 ml IVPUSH ONETIME STA Stop: 01/08/21 07:49 Last Admin: 01/08/21 07:49 Dose: 20 ml Documented by: Sodium Chloride (Normal Saline) 1,000 mls @ 125 mls/hr IV NOW STA Stop: 01/08/21 06:03 Last Admin: 01/07/21 22:56 Dose: 125 mls/hr Documented by: Nicardipine HCl (Cardenein Ns 40 Mg/200 Ml) 40 mg in 200 mls @ 25 mls/hr IV TITRATE VICK; Protocol Nicardipine HCl (Cardenein Ns 40 Mg/200 Ml) 40 mg in 200 mls @ 25 mls/hr IV TITRATE VICK; Protocol Nicardipine HCl (Cardene In Ns 20 Mg/200 Ml) Confirm Administered Dose 20 mg in 200 mls @ as directed .ROUTE .STK-MED ONE Stop: 01/07/21 22:40 Last Admin: 01/07/21 22:51 Dose: Not Given Documented by: Nicardipine HCl (Cardene In Ns 20 Mg/200 Ml) 20 mg in 200 mls @ 5 mls/hr IV ASDIRECTED VICK; Protocol Last Titration: 01/07/21 23:01 Dose: 0 mls/hr Documented by: Pantoprazole Sodium 40 mg/ (Sodium Chloride) 10 mls @ 300 mls/hr IV DAILY VICK Iopamidol (Iopamidol 755 Mg/Ml 500 Ml Multipack Bottle) 100 ml IVPUSH ONETIME STA Stop: 01/07/21 22:42 Last Admin: 01/07/21 22:41 Dose: 100 ml Documented by: Labetalol HCl (Labetalol 100 Mg/20 Ml Mdv) 20 mg IVPUSH ONETIME ONE; Protocol Stop: 01/07/21 23:42 Last Admin: 01/08/21 00:35 Dose: Not Given Documented by: Nitroglycerin (Nitroglycerin 2% Oint 1 Gm Ud Packet) 1 gm TOP ONETIME ONE Stop: 01/07/21 23:13 Last Admin: 01/07/21 23:14 Dose: 1 gm Documented by: Nitroglycerin (Nitroglycerin 2% Oint 1 Gm Ud Packet) 1 gm TOP ONETIME ONE Stop: 01/07/21 23:43 Last Admin: 01/07/21 23:59 Dose: Not Given Documented by: Ondansetron HCl (Ondansetron 4 Mg/2 Ml Sdv) 4 mg IVPUSH ONETIME ONE Stop: 01/07/21 22:05 Last Admin: 01/07/21 23:02 Dose: 4 mg Documented by: Potassium Chloride (Potassium Chloride 20 Meq Tab.Er) 20 meq PO ONETIME ONE Stop: 01/08/21 09:01 Last Admin: 01/08/21 09:32 Dose: 20 meq Documented by: - Patient Data Lab Results Last 24 hrs: Laboratory Results - last 24 hr 01/07/21 01/07/21 01/07/21 Range/Units 22:50 22:50 22:50 WBC 10.54 (4.0-11.0) K/uL RBC 5.26 (4.30-5.90) M/uL Hgb 14.1 (12.0-16.0) g/dL Hct 42.9 (36.0-46.0) % MCV 81.6 (80.0-98.0) fL MCH 26.8 L (27.0-32.0) pg MCHC 32.9 (31.0-37.0) g/dL RDW Std Deviation 43.4 (28.0-62.0) fl RDW Coeff of Alex 15 (11.0-15.0) % Plt Count 389 (150-400) K/uL MPV 9.80 (7.40-12.00) fL Neut % (Auto) 55.1 (48.0-80.0) % Lymph % (Auto) 27.7 (16.0-40.0) % [place] % (Auto) 10.9 (0.0-15.0) % Eos % (Auto) 6.0 (0.0-7.0) % Baso % (Auto) 0.3 (0.0-1.5) % Neut # (Auto) 5.8 H (1.4-5.7) K/uL Lymph # (Auto) 2.9 H (0.6-2.4) K/uL [place] # (Auto) 1.2 H (0.0-0.8) K/uL Eos # (Auto) 0.6 (0.0-0.7) K/uL Baso # (Auto) 0.0 (0.0-0.1) K/uL Nucleated RBC % 0.0 /100WBC Nucleated RBCs # 0 K/uL INR 0.99 APTT 26.1 (18.6-31.3) SEC Sodium 137 (136-145) mmol/L Potassium 3.7 (3.5-5.1) mmol/L Chloride 102 (98-107) mmol/L Carbon Dioxide 26.8 (21.0-32.0) mmol/L BUN 13 (7.0-18.0) mg/dL Creatinine 0.8 (0.6-1.0) mg/dL Est Cr Clr Drug Dosing 84.88 mL/min Estimated GFR (MDRD) > 60.0 ml/min Glucose 146 H (74-106) mg/dL Hemoglobin A1c (4.5 - 6.2) % Calcium 9.2 (8.5-10.1) mg/dL Phosphorus (2.6-4.7) mg/dL Magnesium (1.8-2.4) mg/dL Total Bilirubin 0.3 (0.2-1.0) mg/dL AST 18 (15-37) IU/L ALT 31 (14-63) IU/L Alkaline Phosphatase 56 (46-116) U/L Troponin I < 0.050 (0.000-0.056) ng/mL Total Protein 7.8 (6.4-8.2) g/dL Albumin 3.7 (3.4-5.0) g/dL Globulin 4.1 H (2.6-4.0) g/dL Albumin/Globulin Ratio 0.9 (0.9-1.6) Triglycerides (0-200) mg/dL Cholesterol (50-200) mg/dL LDL Cholesterol, Calc (60-180) mg/dL VLDL Cholesterol (5-55) mg/dL HDL Cholesterol (40-60) mg/dL Cholesterol/HDL Ratio (3.3-6.0) TSH 3rd Generation 2.38 (0.36-3.74) uIU/mL HCG, Qual (NEG) Urine Color Urine Appearance Urine pH (5.0-8.0) Ur Specific [place] (1.001-1.035) Urine Protein (NEGATIVE) mg/dL Urine Glucose (UA) (NEGATIVE) mg/dL Urine Ketones (NEGATIVE) mg/dL Urine Occult Blood (NEGATIVE) Urine Nitrite (NEGATIVE) Urine Bilirubin (NEGATIVE) Urine Urobilinogen (<2.0) EU/dL Ur Leukocyte Esterase (NEGATIVE) Urine RBC (0-2/HPF) Urine WBC (0-5/HPF) Ur Epithelial Cells (NONE-FEW) Urine Bacteria (NEGATIVE) Urine Mucus (NONE-MOD) Urine Opiates Screen (NEGATIVE) Ur Oxycodone Screen (NEGATIVE) Urine Methadone Screen (NEGATIVE) Ur Barbiturates Screen (NEGATIVE) Ur Phencyclidine Scrn (NEGATIVE) Ur Amphetamine Screen (NEGATIVE) U Methamphetamines Scrn (NEGATIVE) U Benzodiazepines Scrn (NEGATIVE) U Cocaine Metab Screen (NEGATIVE) U Marijuana (THC) Screen (NEGATIVE) Ethyl Alcohol < 3.0 mg/dL SARS-CoV-2 RNA (MARCELLUS) (NEGATIVE) 01/07/21 01/07/21 01/07/21 Range/Units 22:50 22:50 22:50 WBC (4.0-11.0) K/uL RBC (4.30-5.90) M/uL Hgb (12.0-16.0) g/dL Hct (36.0-46.0) % MCV (80.0-98.0) fL MCH (27.0-32.0) pg MCHC (31.0-37.0) g/dL RDW Std Deviation (28.0-62.0) fl RDW Coeff of Alex (11.0-15.0) % Plt Count (150-400) K/uL MPV (7.40-12.00) fL Neut % (Auto) (48.0-80.0) % Lymph % (Auto) (16.0-40.0) % [place] % (Auto) (0.0-15.0) % Eos % (Auto) (0.0-7.0) % Baso % (Auto) (0.0-1.5) % Neut # (Auto) (1.4-5.7) K/uL Lymph # (Auto) (0.6-2.4) K/uL [place] # (Auto) (0.0-0.8) K/uL Eos # (Auto) (0.0-0.7) K/uL Baso # (Auto) (0.0-0.1) K/uL Nucleated RBC % /100WBC Nucleated RBCs # K/uL INR APTT (18.6-31.3) SEC Sodium (136-145) mmol/L Potassium (3.5-5.1) mmol/L Chloride (98-107) mmol/L Carbon Dioxide (21.0-32.0) mmol/L BUN (7.0-18.0) mg/dL Creatinine (0.6-1.0) mg/dL Est Cr Clr Drug Dosing mL/min Estimated GFR (MDRD) ml/min Glucose (74-106) mg/dL Hemoglobin A1c 6.3 H (4.5 - 6.2) % Calcium (8.5-10.1) mg/dL Phosphorus (2.6-4.7) mg/dL Magnesium (1.8-2.4) mg/dL Total Bilirubin (0.2-1.0) mg/dL AST (15-37) IU/L ALT (14-63) IU/L Alkaline Phosphatase (46-116) U/L Troponin I (0.000-0.056) ng/mL Total Protein (6.4-8.2) g/dL Albumin (3.4-5.0) g/dL Globulin (2.6-4.0) g/dL Albumin/Globulin Ratio (0.9-1.6) Triglycerides 173 (0-200) mg/dL Cholesterol 200 (50-200) mg/dL LDL Cholesterol, Calc 125 (60-180) mg/dL VLDL Cholesterol 34 (5-55) mg/dL HDL Cholesterol 40 (40-60) mg/dL Cholesterol/HDL Ratio 5.0 (3.3-6.0) TSH 3rd Generation (0.36-3.74) uIU/mL HCG, Qual NEGATIVE (NEG) Urine Color Urine Appearance Urine pH (5.0-8.0) Ur Specific [place] (1.001-1.035) Urine Protein (NEGATIVE) mg/dL Urine Glucose (UA) (NEGATIVE) mg/dL Urine Ketones (NEGATIVE) mg/dL Urine Occult Blood (NEGATIVE) Urine Nitrite (NEGATIVE) Urine Bilirubin (NEGATIVE) Urine Urobilinogen (<2.0) EU/dL Ur Leukocyte Esterase (NEGATIVE) Urine RBC (0-2/HPF) Urine WBC (0-5/HPF) Ur Epithelial Cells (NONE-FEW) Urine Bacteria (NEGATIVE) Urine Mucus (NONE-MOD) Urine Opiates Screen (NEGATIVE) Ur Oxycodone Screen (NEGATIVE) Urine Methadone Screen (NEGATIVE) Ur Barbiturates Screen (NEGATIVE) Ur Phencyclidine Scrn (NEGATIVE) Ur Amphetamine Screen (NEGATIVE) U Methamphetamines Scrn (NEGATIVE) U Benzodiazepines Scrn (NEGATIVE) U Cocaine Metab Screen (NEGATIVE) U Marijuana (THC) Screen (NEGATIVE) Ethyl Alcohol mg/dL SARS-CoV-2 RNA (MARCELLUS) (NEGATIVE) 01/07/21 01/07/21 01/07/21 Range/Units 23:20 23:20 23:25 WBC (4.0-11.0) K/uL RBC (4.30-5.90) M/uL Hgb (12.0-16.0) g/dL Hct (36.0-46.0) % MCV (80.0-98.0) fL MCH (27.0-32.0) pg MCHC (31.0-37.0) g/dL RDW Std Deviation (28.0-62.0) fl RDW Coeff of Alex (11.0-15.0) % Plt Count (150-400) K/uL MPV (7.40-12.00) fL Neut % (Auto) (48.0-80.0) % Lymph % (Auto) (16.0-40.0) % [place] % (Auto) (0.0-15.0) % Eos % (Auto) (0.0-7.0) % Baso % (Auto) (0.0-1.5) % Neut # (Auto) (1.4-5.7) K/uL Lymph # (Auto) (0.6-2.4) K/uL [place] # (Auto) (0.0-0.8) K/uL Eos # (Auto) (0.0-0.7) K/uL Baso # (Auto) (0.0-0.1) K/uL Nucleated RBC % /100WBC Nucleated RBCs # K/uL INR APTT (18.6-31.3) SEC Sodium (136-145) mmol/L Potassium (3.5-5.1) mmol/L Chloride (98-107) mmol/L Carbon Dioxide (21.0-32.0) mmol/L BUN (7.0-18.0) mg/dL Creatinine (0.6-1.0) mg/dL Est Cr Clr Drug Dosing mL/min Estimated GFR (MDRD) ml/min Glucose (74-106) mg/dL Hemoglobin A1c (4.5 - 6.2) % Calcium (8.5-10.1) mg/dL Phosphorus (2.6-4.7) mg/dL Magnesium (1.8-2.4) mg/dL Total Bilirubin (0.2-1.0) mg/dL AST (15-37) IU/L ALT (14-63) IU/L Alkaline Phosphatase (46-116) U/L Troponin I (0.000-0.056) ng/mL Total Protein (6.4-8.2) g/dL Albumin (3.4-5.0) g/dL Globulin (2.6-4.0) g/dL Albumin/Globulin Ratio (0.9-1.6) Triglycerides (0-200) mg/dL Cholesterol (50-200) mg/dL LDL Cholesterol, Calc (60-180) mg/dL VLDL Cholesterol (5-55) mg/dL HDL Cholesterol (40-60) mg/dL Cholesterol/HDL Ratio (3.3-6.0) TSH 3rd Generation (0.36-3.74) uIU/mL HCG, Qual (NEG) Urine Color YELLOW Urine Appearance SLT CLOUDY Urine pH 6.5 (5.0-8.0) Ur Specific [place] 1.020 (1.001-1.035) Urine Protein 100 H (NEGATIVE) mg/dL Urine Glucose (UA) NEGATIVE (NEGATIVE) mg/dL Urine Ketones NEGATIVE (NEGATIVE) mg/dL Urine Occult Blood TRACE-LYSED H (NEGATIVE) Urine Nitrite POSITIVE H (NEGATIVE) Urine Bilirubin NEGATIVE (NEGATIVE) Urine Urobilinogen 0.2 (<2.0) EU/dL Ur Leukocyte Esterase NEGATIVE (NEGATIVE) Urine RBC NONE SEEN (0-2/HPF) Urine WBC 0-3 (0-5/HPF) Ur Epithelial Cells RARE (NONE-FEW) Urine Bacteria 3+ H (NEGATIVE) Urine Mucus LIGHT (NONE-MOD) Urine Opiates Screen NEGATIVE (NEGATIVE) Ur Oxycodone Screen NEGATIVE (NEGATIVE) Urine Methadone Screen NEGATIVE (NEGATIVE) Ur Barbiturates Screen NEGATIVE (NEGATIVE) Ur Phencyclidine Scrn NEGATIVE (NEGATIVE) Ur Amphetamine Screen NEGATIVE (NEGATIVE) U Methamphetamines Scrn NEGATIVE (NEGATIVE) U Benzodiazepines Scrn NEGATIVE (NEGATIVE) U Cocaine Metab Screen NEGATIVE (NEGATIVE) U Marijuana (THC) Screen NEGATIVE (NEGATIVE) Ethyl Alcohol mg/dL SARS-CoV-2 RNA (MARCELLUS) NEGATIVE (NEGATIVE) 01/08/21 01/08/21 01/08/21 Range/Units 05:19 05:19 05:19 WBC 11.47 H (4.0-11.0) K/uL RBC 5.00 (4.30-5.90) M/uL Hgb 13.3 (12.0-16.0) g/dL Hct 41.3 (36.0-46.0) % MCV 82.6 (80.0-98.0) fL MCH 26.6 L (27.0-32.0) pg MCHC 32.2 (31.0-37.0) g/dL RDW Std Deviation 44.4 (28.0-62.0) fl RDW Coeff of Alex 15 (11.0-15.0) % Plt Count 406 H (150-400) K/uL MPV 10.10 (7.40-12.00) fL Neut % (Auto) 49.9 (48.0-80.0) % Lymph % (Auto) 34.5 (16.0-40.0) % [place] % (Auto) 10.6 (0.0-15.0) % Eos % (Auto) 4.6 (0.0-7.0) % Baso % (Auto) 0.4 (0.0-1.5) % Neut # (Auto) 5.7 (1.4-5.7) K/uL Lymph # (Auto) 4.0 H (0.6-2.4) K/uL [place] # (Auto) 1.2 H (0.0-0.8) K/uL Eos # (Auto) 0.5 (0.0-0.7) K/uL Baso # (Auto) 0.1 (0.0-0.1) K/uL Nucleated RBC % 0.0 /100WBC Nucleated RBCs # 0 K/uL INR APTT (18.6-31.3) SEC Sodium 138 (136-145) mmol/L Potassium 3.9 (3.5-5.1) mmol/L Chloride 103 (98-107) mmol/L Carbon Dioxide 27.8 (21.0-32.0) mmol/L BUN 12 (7.0-18.0) mg/dL Creatinine 0.7 (0.6-1.0) mg/dL Est Cr Clr Drug Dosing 97.01 mL/min Estimated GFR (MDRD) > 60.0 ml/min Glucose 117 H (74-106) mg/dL Hemoglobin A1c (4.5 - 6.2) % Calcium 8.7 (8.5-10.1) mg/dL Phosphorus 4.7 (2.6-4.7) mg/dL Magnesium 2.1 (1.8-2.4) mg/dL Total Bilirubin (0.2-1.0) mg/dL AST (15-37) IU/L ALT (14-63) IU/L Alkaline Phosphatase (46-116) U/L Troponin I (0.000-0.056) ng/mL Total Protein (6.4-8.2) g/dL Albumin (3.4-5.0) g/dL Globulin (2.6-4.0) g/dL Albumin/Globulin Ratio (0.9-1.6) Triglycerides (0-200) mg/dL Cholesterol (50-200) mg/dL LDL Cholesterol, Calc (60-180) mg/dL VLDL Cholesterol (5-55) mg/dL HDL Cholesterol (40-60) mg/dL Cholesterol/HDL Ratio (3.3-6.0) TSH 3rd Generation (0.36-3.74) uIU/mL HCG, Qual (NEG) Urine Color Urine Appearance Urine pH (5.0-8.0) Ur Specific [place] (1.001-1.035) Urine Protein (NEGATIVE) mg/dL Urine Glucose (UA) (NEGATIVE) mg/dL Urine Ketones (NEGATIVE) mg/dL Urine Occult Blood (NEGATIVE) Urine Nitrite (NEGATIVE) Urine Bilirubin (NEGATIVE) Urine Urobilinogen (<2.0) EU/dL Ur Leukocyte Esterase (NEGATIVE) Urine RBC (0-2/HPF) Urine WBC (0-5/HPF) Ur Epithelial Cells (NONE-FEW) Urine Bacteria (NEGATIVE) Urine Mucus (NONE-MOD) Urine Opiates Screen (NEGATIVE) Ur Oxycodone Screen (NEGATIVE) Urine Methadone Screen (NEGATIVE) Ur Barbiturates Screen (NEGATIVE) Ur Phencyclidine Scrn (NEGATIVE) Ur Amphetamine Screen (NEGATIVE) U Methamphetamines Scrn (NEGATIVE) U Benzodiazepines Scrn (NEGATIVE) U Cocaine Metab Screen (NEGATIVE) U Marijuana (THC) Screen (NEGATIVE) Ethyl Alcohol mg/dL SARS-CoV-2 RNA (MARCELLUS) (NEGATIVE) Result Diagrams: 01/08/21 05:19 01/08/21 05:19 Sepsis Event Note - Evaluation Sepsis Screening Result: No Definite Risk - Focused Exam Vital Signs: Vital Signs Temp Pulse Resp BP Pulse Ox Pulse Ox 01/08/21 09:35 62 204/100 H 01/08/21 07:06 96.8 F L 68 20 186/88 H 93 L 01/08/21 04:00 98.3 F 78 17 168/87 H 92 L 01/08/21 01:46 96 96 01/08/21 01:28 171/102 H 01/08/21 00:45 97.9 F 101 H 18 179/103 H 96 01/08/21 00:30 101 H 122/75 93 L 01/08/21 00:00 102 H 143/90 H 96 01/07/21 23:45 96 163/90 H 95 01/07/21 23:30 100 195/105 H 95 01/07/21 23:12 87 189/94 H 97 01/07/21 22:56 195/99 H 01/07/21 22:33 169/81 H - My Orders Last 24 Hours: My Active Orders 01/08/21 10:17 lisinopriL [Prinivil] 20 mg PO ONETIME ONE 01/08/21 10:30 amLODIPine [Norvasc] 10 mg PO DAILY hydroCHLOROthiazide 12.5 mg PO DAILY 01/08/21 17:30 metFORMIN [Glucophage XR] 500 mg PO WITHDINNER - Plan Plan:: Uncontrolled Hypertension- TIA- CT Negative, MRI W/WO contrast pending. Allow permesive hypertension UTI- urine cultures pending, IV antibiotics amlodipine, metformin, hctz, lisinopril
[2021-01-08] MEDS ORDERED: Hydrochlorothiazide 12.5 MG Cap PO SCH (10:30)
[2021-01-08] MEDS: amLODIPine 5 MG Tab PO SCH (11:04)
[2021-01-08] MEDS ORDERED: metFORMIN 500 MG Tab.ER PO SCH (17:30)
[2021-01-08] MEDS: Acetaminophen 325 MG Tab PO PRN ×2 (17:44→23:58)
[2021-01-08] MEDS ORDERED: atorvaSTATin 40 MG Tab PO SCH (21:00)
[2021-01-09] MEDS: cefTRIAXone 1 GM in Premix Bag 1 BAG IV SCH (02:10)
[2021-01-09] MEDS: Acetaminophen 325 MG Tab PO PRN (04:20)
[2021-01-09 06:37] LABS: BLOOD UREA NITROGEN,BUN 10 mg/dL (7.0-18.0); CHLORIDE,CL 102 mmol/L (98-107); GLUCOSE RANDOM 108 mg/dL (74-106); POTASSIUM,K 3.7 mmol/L (3.5-5.1); SODIUM,NA 137 mmol/L (136-145)
[2021-01-09] MEDS ORDERED: Lisinopril 10 MG Tab PO SCH (09:00)
[2021-01-09] MEDS ORDERED: Hydrochlorothiazide 12.5 MG Cap PO SCH (09:00)
[2021-01-09] MEDS: Aspirin 81 MG Tab.Chew PO SCH (09:27)
[2021-01-09] MEDS: amLODIPine 5 MG Tab PO SCH (09:27)
[2021-01-09] MEDS: Pantoprazole 40 MG in Sodium Chloride 0.9% 10 ML IV SCH ×2 (09:28→09:56)
--- NOTE | 2021-01-09 12:29 | PCM.DCSUM1 ---
Discharge Summary - Hospital Course Free Text/Narrative:: 45-year-old female admitted for hypertensive crisis and TIA. Patient presented to the ED with paresthesias of the upper extremities bilaterally and a left facial droop with markedly elevated blood pressure. Per documentation it was reported that her blood pressure was 210/125 prior to arrival in the ED. Patient reports that approximately 30 minutes prior to arrival she started experiencing paresthesias in her upper extremities. On admission patient denies any recent episodes of weakness or decreased sensation of extremities. Patient states that she did not realize she had high blood pressure as she has not seen a doctor in many many years. Patient states that she does not have any past medical history but cannot confirm due to poor medical follow-up. Patient denied weakness, headaches, lightheadedness, blurry vision, decrease sensation in extremity, decreased strength in extremities, denies slurring speech, denies chest pain, shortness of breath, abdominal pain. Patient has never taken medications for hypertension. CT head- no intracranial hemorrhage or territorial infarction noted. CT angio head/neck- no intracranial large vessel occlusion, no stenosis rotted right or left internal carotid artery, normal CT angiogram of the head and neck. Brain MRI- no acute intracranial abnormality. Patient admitted and started on amlodipine 10 mg p.o. daily, hydrochlorothiazide 12.5 mg p.o. daily, lisinopril 20 mg p.o. daily for hypertension. On discharge patient's blood pressure was 149/82. Patient also started on aspirin 81 mg. Patient discharged home on Keflex for UTI. Patient also started on Metformin 5 mg daily at evening meal due to slightly elevated HbA1c of 6.3. - Discharge Data Discharge Date: 01/09/21 Discharge Disposition: Home, Self-Care 01 Condition: Stable - Referral to Home Health Primary Care Physician: PCP Unobtainable - Discharge Diagnosis/Problem(s) (1) Uncontrolled hypertension SNOMED Code(s): 70382126, 26838574 ICD Code: I10 - ESSENTIAL (PRIMARY) HYPERTENSION Status: Acute (2) Prediabetes SNOMED Code(s): 331520351 ICD Code: R73.03 - PREDIABETES Status: Acute (3) Hypertensive crisis SNOMED Code(s): 816830092 ICD Code: I16.9 - HYPERTENSIVE CRISIS, UNSPECIFIED Status: Acute (4) TIA (transient ischemic attack) SNOMED Code(s): 273683283 ICD Code: G45.9 - TRANSIENT CEREBRAL ISCHEMIC ATTACK, UNSPECIFIED Status: Acute - Patient Instructions Diet: Heart Healthy Diet, Low Sodium Activity: As Tolerated Showering/Bathing: May Shower Notify Provider of: Nausea and/or Vomiting Other/Special Instructions: REVIEW ALL MEDICATIONS WITH PHYSICAN AT FIRST DOCTORS VISIT. REPORT ANY SIDE EFFECTS SUCH HEADACHES, DIZZINESS, LIGHTHEADEDNESS, ABDOMINAL PAIN TO PHYSICIAN - Discharge Plan Prescriptions/Med Rec: Aspirin 81 mg PO DAILY #21 tab.chew metFORMIN [Glucophage XR] 500 mg PO WITHDINNER #21 tab.er hydroCHLOROthiazide [Hydrochlorothiazide] 12.5 mg PO DAILY #21 cap cephALEXin [Keflex] 500 mg PO BID 3 Days #6 cap amLODIPine [Norvasc] 10 mg PO DAILY 15 Days #30 tablet lisinopriL [Prinivil] 20 mg PO DAILY #30 tablet Home Medications: Home Meds Aspirin 81 mg PO DAILY #21 tab.chew 01/09/21 [Rx] amLODIPine [Norvasc] 10 mg PO DAILY 15 Days #30 tablet 01/09/21 [Rx] cephALEXin [Keflex] 500 mg PO BID 3 Days #6 cap 01/09/21 [Rx] hydroCHLOROthiazide [Hydrochlorothiazide] 12.5 mg PO DAILY #21 cap 01/09/21 [Rx] lisinopriL [Prinivil] 20 mg PO DAILY #30 tablet 01/09/21 [Rx] metFORMIN [Glucophage XR] 500 mg PO WITHDINNER #21 tab.er 01/09/21 [Rx] Patient Handouts: DASH Eating Plan, Hypertension, Adult, [id number], Cephalexin Tablets or Capsules, Lisinopril tablets, Amlodipine Oral Tablets, Metformin tablets, Aspirin capsules or tablets extended release, Hydrochlorothiazide, HCTZ Oral Capsules or Tablets Referrals: Jimbo May MD [Physician] - 01/15/21 9:30 am - Discharge Summary/Plan Comment DC Time >30 min.: Yes - Review of Systems General: Denies: Fever, Chills Pulmonary: Denies: Shortness of Breath, Pleuritic Chest Pain, Cough Cardiovascular: Denies: Chest Pain, Palpitations, Dyspnea on Exertion, Edema, Lightheadedness Gastrointestinal: Denies: Abdominal Pain, Nausea, Vomiting Skin: Denies: Cyanosis Neurological: Reports: Headache (patient states mild headache after starting blood pressure medications). Denies: Dizziness, Numbness Psychiatric: Denies: Confusion - Patient Data Vitals - Most Recent: Last Vital Signs Temp 97.8 F 01/09/21 08:00 Pulse 66 01/09/21 08:00 Resp 18 01/09/21 08:00 BP 147/82 H 01/09/21 10:43 Pulse Ox 93 L 01/09/21 08:00 Weight - Most Recent: 343 lb I&O - Last 24 hours: Intake & Output 01/08/21 01/09/21 01/09/21 22:59 06:59 14:59 Intake Total 1480 1000 Output Total 2600 2100 Balance -1120 -1100 Lab Results - Last 24 hrs: Laboratory Results - last 24 hr 01/09/21 01/09/21 Range/Units 05:32 05:32 WBC 9.64 (4.0-11.0) K/uL RBC 5.17 (4.30-5.90) M/uL Hgb 13.6 (12.0-16.0) g/dL Hct 43.0 (36.0-46.0) % MCV 83.2 (80.0-98.0) fL MCH 26.3 L (27.0-32.0) pg MCHC 31.6 (31.0-37.0) g/dL RDW Std Deviation 45.5 (28.0-62.0) fl RDW Coeff of Alex 15 (11.0-15.0) % Plt Count 408 H (150-400) K/uL MPV 9.90 (7.40-12.00) fL Neut % (Auto) 50.1 (48.0-80.0) % Lymph % (Auto) 31.4 (16.0-40.0) % [place] % (Auto) 11.3 (0.0-15.0) % Eos % (Auto) 6.7 (0.0-7.0) % Baso % (Auto) 0.5 (0.0-1.5) % Neut # (Auto) 4.8 (1.4-5.7) K/uL Lymph # (Auto) 3.0 H (0.6-2.4) K/uL [place] # (Auto) 1.1 H (0.0-0.8) K/uL Eos # (Auto) 0.7 (0.0-0.7) K/uL Baso # (Auto) 0.1 (0.0-0.1) K/uL Nucleated RBC % 0.0 /100WBC Nucleated RBCs # 0 K/uL Sodium 137 (136-145) mmol/L Potassium 3.7 (3.5-5.1) mmol/L Chloride 102 (98-107) mmol/L Carbon Dioxide 27.0 (21.0-32.0) mmol/L BUN 10 (7.0-18.0) mg/dL Creatinine 0.7 (0.6-1.0) mg/dL Est Cr Clr Drug Dosing 97.01 mL/min Estimated GFR (MDRD) > 60.0 ml/min Glucose 108 H (74-106) mg/dL Calcium 9.3 (8.5-10.1) mg/dL Magnesium 2.1 (1.8-2.4) mg/dL Med Orders - Current: Current Medications Acetaminophen (Acetaminophen 325 Mg Tab) 650 mg PO Q4H PRN PRN Reason: Pain Last Admin: 01/09/21 04:20 Dose: 650 mg Documented by: Albuterol/Ipratropium (Albuterol/Ipratropium 3.0-0.5 Mg/3 Ml Neb Soln) 3 ml NEB Q4HRRT PRN PRN Reason: Shortness of Breath Amlodipine Besylate (Amlodipine 5 Mg Tab) 10 mg PO DAILY [facility] Last Admin: 01/09/21 09:27 Dose: 10 mg Documented by: Aspirin (Aspirin 81 Mg Tab.Chew) 81 mg PO DAILY [facility] Last Admin: 01/09/21 09:27 Dose: 81 mg Documented by: Atorvastatin Calcium (Atorvastatin 40 Mg Tab) 40 mg PO BEDTIME [facility] Last Admin: 01/08/21 21:02 Dose: 40 mg Documented by: Hydrochlorothiazide (Hydrochlorothiazide 12.5 Mg Cap) 25 mg PO DAILY [facility] Last Admin: 01/09/21 09:27 Dose: 25 mg Documented by: Ceftriaxone Sodium/Dextrose 1 (gm/ Premix) 50 mls @ 100 mls/hr IV Q24H [facility] Last Admin: 01/09/21 02:10 Dose: 100 mls/hr Documented by: Pantoprazole Sodium 40 mg/ (Sodium Chloride) 10 mls @ 300 mls/hr IV DAILY [facility] Last Admin: 01/09/21 09:56 Dose: Not Given Documented by: Labetalol HCl (Labetalol 100 Mg/20 Ml Mdv) 20 mg IVPUSH Q6H PRN; Protocol PRN Reason: Hypertension Last Admin: 01/08/21 09:45 Dose: 20 mg Documented by: Lisinopril (Lisinopril 10 Mg Tab) 20 mg PO DAILY [facility] Last Admin: 01/09/21 09:28 Dose: 20 mg Documented by: Metformin HCl (Metformin 500 Mg Tab.Er) 500 mg PO WITHDINNER [facility] Last Admin: 01/08/21 17:31 Dose: 500 mg Documented by: Ondansetron HCl (Ondansetron 4 Mg/2 Ml Sdv) 4 mg IVPUSH Q6H PRN PRN Reason: Nausea/Vomiting Sodium Chloride (Sodium Chloride 0.9% 10 Ml Syringe) 10 ml FLUSH ASDIRECTED PRN PRN Reason: Keep Vein Open Last Admin: 01/07/21 23:02 Dose: 10 ml Documented by: Sodium Chloride (Sodium Chloride 0.9% 2.5 Ml Syringe) 2.5 ml FLUSH ASDIRECTED PRN PRN Reason: Keep Vein Open Last Admin: 01/07/21 23:02 Dose: 2.5 ml Documented by: Sodium Chloride (Sodium Chloride 0.9% 10 Ml Sdv) 10 ml IV ASDIRECTED PRN PRN Reason: IV Use Discontinued Medications Gadobenate Dimeglumine (Gadobenate Dimeglumine 529 Mg/Ml 20 Ml Sdv) 20 ml IVPUSH ONETIME STA Stop: 01/08/21 07:49 Last Admin: 01/08/21 07:49 Dose: 20 ml Documented by: Hydrochlorothiazide (Hydrochlorothiazide 12.5 Mg Cap) 12.5 mg PO DAILY [facility] Last Admin: 01/08/21 11:03 Dose: 12.5 mg Documented by: Sodium Chloride (Normal Saline) 1,000 mls @ 125 mls/hr IV NOW STA Stop: 01/08/21 06:03 Last Admin: 01/07/21 22:56 Dose: 125 mls/hr Documented by: Nicardipine HCl (Cardenein Ns 40 Mg/200 Ml) 40 mg in 200 mls @ 25 mls/hr IV TITRATE VIKC; Protocol Nicardipine HCl (Cardenein Ns 40 Mg/200 Ml) 40 mg in 200 mls @ 25 mls/hr IV TITRATE VICK; Protocol Nicardipine HCl (Cardene In Ns 20 Mg/200 Ml) Confirm Administered Dose 20 mg in 200 mls @ as directed .ROUTE .STK-MED ONE Stop: 01/07/21 22:40 Last Admin: 01/07/21 22:51 Dose: Not Given Documented by: Nicardipine HCl (Cardene In Ns 20 Mg/200 Ml) 20 mg in 200 mls @ 5 mls/hr IV ASDIRECTED VICK; Protocol Last Titration: 01/07/21 23:01 Dose: 0 mls/hr Documented by: Pantoprazole Sodium 40 mg/ (Sodium Chloride) 10 mls @ 300 mls/hr IV DAILY [facility] Iopamidol (Iopamidol 755 Mg/Ml 500 Ml Multipack Bottle) 100 ml IVPUSH ONETIME STA Stop: 01/07/21 22:42 Last Admin: 01/07/21 22:41 Dose: 100 ml Documented by: Labetalol HCl (Labetalol 100 Mg/20 Ml Mdv) 20 mg IVPUSH ONETIME ONE; Protocol Stop: 01/07/21 23:42 Last Admin: 01/08/21 00:35 Dose: Not Given Documented by: Lisinopril (Lisinopril 10 Mg Tab) 20 mg PO ONETIME ONE Stop: 01/08/21 10:18 Last Admin: 01/08/21 11:04 Dose: 20 mg Documented by: Nitroglycerin (Nitroglycerin 2% Oint 1 Gm Ud Packet) 1 gm TOP ONETIME ONE Stop: 01/07/21 23:13 Last Admin: 01/07/21 23:14 Dose: 1 gm Documented by: Nitroglycerin (Nitroglycerin 2% Oint 1 Gm Ud Packet) 1 gm TOP ONETIME ONE Stop: 01/07/21 23:43 Last Admin: 01/07/21 23:59 Dose: Not Given Documented by: Ondansetron HCl (Ondansetron 4 Mg/2 Ml Sdv) 4 mg IVPUSH ONETIME ONE Stop: 01/07/21 22:05 Last Admin: 01/07/21 23:02 Dose: 4 mg Documented by: Potassium Chloride (Potassium Chloride 20 Meq Tab.Er) 20 meq PO ONETIME ONE Stop: 01/08/21 09:01 Last Admin: 01/08/21 09:32 Dose: 20 meq Documented by: - Exam General: Reports: Alert, Oriented Lungs: Reports: Clear to Auscultation, Normal Respiratory Effort Cardiovascular: Reports: Regular Rate, Regular Rhythm GI/Abdominal Exam: Normal Bowel Sounds, Soft, Non-Tender Back Exam: Denies: CVA Tenderness (L), CVA Tenderness (R) Extremities: No Pedal Edema Psy/Mental Status: Reports: Alert
== END 2021-01-09 13:17 | disposition home or self-care (01) ==
LOC: MW.ED 22:03 → MW.MS 23:43
PROVIDERS: ADMIT Student in an Organized Health Care Education/Training Program; ATTEND Student in an Organized Health Care Education/Training Program
DX: I16.9 Hypertensive crisis, unspecified (principal); G45.9 Transient cerebral ischemic attack, unspecified; I10 Essential (primary) hypertension; R73.03 Prediabetes; Z20.822 Contact with and (suspected) exposure to COVID-19; Z79.82 Long term (current) use of aspirin; Z79.84 Long term (current) use of oral hypoglycemic drugs; N39.0 Urinary tract infection, site not specified
CPT/HCPCS: 36415; 70450; 70496; 70498; 70553; 71045; 80048; 80053; 80061; 80305; 80307; 81001; 83036; 83735; 84100; 84443; 84484; 84703; 85025; 85610; 85730; 87086; 87186; 87635; 93005; 93306; A9270; A9577; C9113; J0696; J2405; J3490; J7030; Q9967; U0002

== ENCOUNTER 2022-10-19 10:41 | Emergency (ER) | payer BC, SELFPAY ==
[2022-10-19] MEDS ORDERED: Acetaminophen 325 MG Tab PO ONE (12:43)
[2022-10-19] MEDS ORDERED: Lidocaine 5% 700 MG Patch TRDERM ONE (12:43)
[2022-10-19] MEDS ORDERED: Ibuprofen 400 MG Tab PO ONE (12:43)
== END 2022-10-19 14:17 | disposition home or self-care (01) ==
LOC: MW.ED 10:41
DX: M54.50 Low back pain, unspecified (principal); H66.92 Otitis media, unspecified, left ear; I10 Essential (primary) hypertension
CPT/HCPCS: 99283; A9270